=== PATIENT | female | born 1940 | race Caucasian/White ===

== ENCOUNTER 2017-04-29 11:00 | Outpatient (RCR) | payer OTHER ==
--- NOTE | 2017-04-09 14:46 | RS.OPPTEV2 ---
Date of Note: 04/08/17 Visit #: 1 Date of Evaluation: 04/08/17 Payer Source: MEDICARE Surgery Performed?: No Treatment Diagnosis: frequent falls, gait instability History of Condition/Mechanism of Injury:: pt has had hx of multiple falls in last few months. pt states she does not get dizzy or black out. She feels like her legs just "fold up" on her. Prior Level of Function.....Patient was independent with: ADL's, Self Care, Ambulation/Mobility Functional Limitations: Reaching, Lifting, Squatting, Ambulation, Community Access/Integration Current Subjective/complaints:: pt states she feels like her legs have just gotten weak. Reports her L shld has been limited since she hurt it while taking care of her . Treatment Side (optional): N/A *Precautions: fall precautions Medical History Medical History: Hypertension, CHF Medical History Comments:: osteoporosis, major depressive disorder, Smoking Status: Never smoker Hx Home Medications: amlodipine, alendronate, atorvastatin, buspirone, calcium, lisinopril, metoprolol succinate XL, sertraline, triamterene-hydrochlorothiazide Patient's Goals: get stronger Functional Outcome Measure Tinetti: 16 (43%) - G Codes & Severity Modifier G Codes & Modifier: mobility current CK. mobility goal CI Source of G Code score: tinetti balance score Observation - Observation Posture: Forward Head, Rounded Shoulders, Increased Thoracic Kyphosis, Decreased Lumbar Lordosis Gait - Gait Pattern General Gait Pattern Observation: Wide Based Gait, Decrease Stride Lngth (R), Decrease Stride Lngth (L), Lateral Trunk Lean Gait Comments: pt amb with increased lat sway, decreased step length and wide SKIP General Range of Motion: L shld flex AAROM 110, abd 80. otherwise WFL's Muscle Strength: RUE: shld flex 3+/5, elbow flex/ext 4-/5, decreased rand sewer strength. LUE: shld flex 3-/5, elbow flex/ext 3+/5, decreased rand sewer strength. BLE hip flex 4-/5, knee flex 4-/5, ext 4/5, ankle DF/PF 4/5 Palpation Palpation Findings: None/Normal Sensation - Sensation Right Upper Extremity: Intact/Normal Left Upper Extremity: Intact/Normal Right Lower Extremity: Intact/Normal Left Lower Extremity: Intact/Normal Balance - Sitting Balance Static Sitting Balance: Good Dynamic Sitting Balance: Good - Standing Balance Static Standing Balance: Fair Dynamic Standing Balance: Poor - Comments Balance Assessment Comments: Tinetti score 16/28, balance master on limits of stability score 9%, 137 secs Interventions - Exercise/Activities/Manual Therapy Exercises/Activities: pt performed SAQ, SLR, LAQ, QS, BLE. UE wand AAROM shld flex x 10, elbow flex/ext Manual Therapy: n/a HOME EXERCISE PROGRAM: pt given written HEP including wand ex, elbow flex/ext, BLE QS, SAQ, SLR, LAQ - Charges Timed Code Treatment Minutes: 58 Total Treatment Time: 64 Procedures billed for this date of service:: eval med EVALUATION COMPLEXITY LEVEL EVALUATION COMPLEXITY LEVEL: HISTORY: Low, EXAM OF BODY SYSTEMS: Low, CLINICAL PRESENTATION: Medium, CLINICAL DECISION MAKING: Low Assessment Assessment: pt presents with decreased strength, balance as well as decreased gait safety. pt is a fall risk. Patient Education: Home Exercise Program, Activity Modification, Education of Plan of Care Rehab Potential: Good Short Term Goals Goal #1: pt amb in dept with no LOB with improved sequencing SBA Goal to be met by: 04/29/17 Goal #2: pt with improved strength BLE 4- to 4/5 Goal to be met by: 04/29/17 Goal #3: pt with improved dyn stand balance as noted by tinetti score Goal to be met by: 04/29/17 Welfare Eligibility Interviewer Goals Goal #1: pt with no reports of fall at home. Goal to be met by: 05/20/17 Goal #2: Improved dyn stand balance as noted by tinetti score Goal to be met by: 05/20/17 Goal #3: pt with improved strength BLE 4 to 4+/5 and independent with HEP Goal to be met by: 05/20/17 Goal #4: pt amb functional household distances with no LOB Goal to be met by: 05/20/17 Plan - Treatment to be Provided Procedures: Therapeutic Exercises, Therapeutic Activity, Gait Training, Patient Education Modalities: No Modalities - Treatment Plan Frequency: 2 X week Duration: 6 weeks ORDER # VISITS AND/OR THROUGH DATE: 05/20/17 - Treatment Code (1) Frequent falls Code(s): R29.6 - REPEATED FALLS (2) Gait instability Code(s): R26.81 - UNSTEADINESS ON FEET (3) Muscle weakness Code(s): M62.81 - MUSCLE WEAKNESS (GENERALIZED)
--- NOTE | 2017-04-11 16:41 | RS.OPPTDN ---
Subjective Date of Note: 04/11/17 Visit #: 2 Date of Evaluation: 04/08/17 Payer Source: MEDICARE Treatment Diagnosis: frequent falls, gait instability Current Subjective/complaints:: Patient says she is eager to improve her strength. She says she has gotten weak since caring for her . She reports performing HEP and has a little soreness in her legs. *Precautions: fall precautions Interventions - Exercise/Activities/Manual Therapy Exercises/Activities: Patient performs supine exercises of: QS, SAQ, LE alternate lift in hooklying, DF with yellow tband, pillow squeezes, isometric hip abd all x 10. SAQ 2x10. 1# wand for bilateral shoulder flexion, chest presses x 10. Sitting: LAQ, toe/heel raises, scapular retraction with yellow tband x 10. Standing at railing: hip abd, heel raises, shoulder shrugs and scap adduction for posture x 10. Education on HEP, safety, and therex performed today. Total minutes of Exercise: 38 Manual Therapy: n/a HOME EXERCISE PROGRAM: pt given written HEP including wand ex, elbow flex/ext, BLE QS, SAQ, SLR, LAQ - Charges Timed Code Treatment Minutes: 38 Total Treatment Time: 38 Procedures billed for this date of service:: ex3 Assessment: Patient able to begin HEP with just slight muscle fatigue/soreness to the quads. Patient performs all therex today well and with only slight fatigue. Patient Education: Education of diagnosis, Home Exercise Program, Home Safety Patient demonstrates compliance with HEP?: Yes Short Term Goals Goal #1: pt amb in dept with no LOB with improved sequencing SBA Goal to be met by: 04/29/17 Goal #2: pt with improved strength BLE 4- to 4/5 Goal to be met by: 04/29/17 Goal #3: pt with improved dyn stand balance as noted by tinetti score Goal to be met by: 04/29/17 Correction Goals Goal #1: pt with no reports of fall at home. Goal to be met by: 05/20/17 Goal #2: Improved dyn stand balance as noted by tinetti score Goal to be met by: 05/20/17 Goal #3: pt with improved strength BLE 4 to 4+/5 and independent with HEP Goal to be met by: 05/20/17 Goal #4: pt amb functional household distances with no LOB Goal to be met by: 05/20/17 Plan PLAN OF CARE EXPIRES ON:: 05/20/17 ORDER # VISITS AND/OR THROUGH DATE: 05/20/17 PLAN: Patient to continue to attend for therex to improve LE/UE strength and bal
--- NOTE | 2017-04-15 14:58 | RS.OPPTDN ---
Subjective Date of Note: 04/15/17 Visit #: 3 Date of Evaluation: 04/08/17 Payer Source: MEDICARE Treatment Diagnosis: frequent falls, gait instability Current Subjective/complaints:: Patient says that she is working on HEP twice a day. She says that she already feels that exercises are helping. *Precautions: fall precautions Interventions - Exercise/Activities/Manual Therapy Exercises/Activities: Patient performs supine exercises of: QS, SAQ added 1# for ea LE, LE alternate lift in hooklying 1# ea LE, DF with yellow tband, pillow squeezes, yellow band for hooklying hip abd all 2 x 10. Supine 1# wand for bilateral shoulder flexion, chest presses x 10. Sitting: Holding ball above her head and lateral lean and at midline x 5. 1# wand for bilateral shoulder flexion with posterior support by REAL ESTATE BRANCH MANAGER, LAQ, toe/heel raises, scapular retraction with yellow tband x 10. Standing at railing: side stepping, heel raises, marching, shoulder shrugs and scap adduction for posture x 10. Education on postural mechanics and safety with gait/transfers. Total minutes of Exercise: 38 Manual Therapy: n/a HOME EXERCISE PROGRAM: pt given written HEP including wand ex, elbow flex/ext, BLE QS, SAQ, SLR, LAQ - Charges Timed Code Treatment Minutes: 38 Total Treatment Time: 38 Procedures billed for this date of service:: ex3 Assessment: Patient already compliant with HEP and feels she is able to see improvement with strength. She does appear weaker on the L LE than R. She needs assistance posteriorally with sitting trunk exercises due to weakness. No LoB with dynamic exercises. Patient Education: Body/Joint mechanics, Home Exercise Program Patient demonstrates compliance with HEP?: Yes Short Term Goals Goal #1: pt amb in dept with no LOB with improved sequencing SBA Goal to be met by: 04/29/17 Progress towards Goal:: Progressing Goal #2: pt with improved strength BLE 4- to 4/5 Goal to be met by: 04/29/17 Goal #3: pt with improved dyn stand balance as noted by tinetti score Goal to be met by: 04/29/17 Hydrologic Modeler Goals Goal #1: pt with no reports of fall at home. Goal to be met by: 05/20/17 Progress towards goal: Progressing Goal #2: Improved dyn stand balance as noted by tinetti score Goal to be met by: 05/20/17 Goal #3: pt with improved strength BLE 4 to 4+/5 and independent with HEP Goal to be met by: 05/20/17 Goal #4: pt amb functional household distances with no LOB Goal to be met by: 05/20/17 Plan PLAN OF CARE EXPIRES ON:: 05/20/17 ORDER # VISITS AND/OR THROUGH DATE: 05/20/17 PLAN: Patient to continue x 8 more sessions for progressing therex.
--- NOTE | 2017-04-18 16:36 | RS.OPPTDN ---
Subjective Date of Note: 04/18/17 Visit #: 4 Date of Evaluation: 04/08/17 Payer Source: MEDICARE Treatment Diagnosis: frequent falls, gait instability Current Subjective/complaints:: Patient c/o increased ache to the knees and shoulders. She says she did extra housework today and feels she shouldn't have done it on a "therapy" day. 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 She says she also performed HEP. States she feels steady, but just sore. *Precautions: fall precautions Pain Assessment - Pain Description Pain Location: sore to the shoulders and knees Interventions - Exercise/Activities/Manual Therapy Exercises/Activities: Patient performs supine exercises of: QS, SAQ added 1# for ea LE, LE alternate lift in hooklying 1# ea LE, DF with red tband, pillow squeezes, red band for hooklying hip abd all 2 x 10. Trunk rotation with ball and red tband, bridging, Supine 1# wand for bilateral shoulder flexion, chest presses x 10. Sitting: Holding ball above her head and lateral lean and at midline x 5. 1# wand for bilateral shoulder flexion with posterior support by ROVING TELLER, sitting: scapular retraction with yellow tband x 10. Standing at railing : hip abd, marching and heel raises on foam x 10. Postural education and perf erect standing and hands on wall for scapular stability. Education on postural mechanics and safety with gait/transfers. Total minutes of Exercise: 45 Manual Therapy: n/a HOME EXERCISE PROGRAM: pt given written HEP including wand ex, elbow flex/ext, BLE QS, SAQ, SLR, LAQ - Charges Timed Code Treatment Minutes: 45 Total Treatment Time: 45 Procedures billed for this date of service:: ex3 Assessment: Patient with increased soreness to the bilateral shoulders and bilateral knees. She is able to perform most therex, but she had difficulty tolerating shoulder ROM bilaterally using wand and holds head down during standing therex and amb due to fatigue and soreness. Discussed resting intermittently with housework chores. Patient Education: Education of diagnosis, Home Exercise Program, Activity Modification Patient demonstrates compliance with HEP?: Yes Short Term Goals Goal #1: pt amb in dept with no LOB with improved sequencing SBA Goal to be met by: 04/29/17 Progress towards Goal:: Progressing Goal #2: pt with improved strength BLE 4- to 4/5 Goal to be met by: 04/29/17 Goal #3: pt with improved dyn stand balance as noted by tinetti score Goal to be met by: 04/29/17 Client Support Manager Goals Goal #1: pt with no reports of fall at home. Goal to be met by: 05/20/17 Progress towards goal: Progressing Goal #2: Improved dyn stand balance as noted by tinetti score Goal to be met by: 05/20/17 Goal #3: pt with improved strength BLE 4 to 4+/5 and independent with HEP Goal to be met by: 05/20/17 Goal #4: pt amb functional household distances with no LOB Goal to be met by: 05/20/17 Plan PLAN OF CARE EXPIRES ON:: 05/20/17 ORDER # VISITS AND/OR THROUGH DATE: 05/20/17 PLAN: Patient to continue for therex BIW to build strength and bal
--- NOTE | 2017-04-23 11:08 | RS.OPPTDN ---
Subjective Date of Note: 04/23/17 Visit #: 5 Date of Evaluation: 04/08/17 Payer Source: MEDICARE Treatment Diagnosis: frequent falls, gait instability Current Subjective/complaints:: Patient says she is performing HEP 2-3 times per day. She says she doesn't know if it is helping her legs or walking much, but says she can tell she is gaining strength in her arms and can now put her jacket on easier. Later, she admits she can go up/down steps better too. *Precautions: fall precautions Interventions - Exercise/Activities/Manual Therapy Exercises/Activities: Patient performs supine exercises of: QS, SAQ added 1 1/2 # for ea LE, LE alternate lift in hooklying 1 1/2# ea LE, DF with red tband, pillow squeezes, red band for hooklying hip abd all 2 x 10. Trunk rotation with ball and red tband, bridging, Supine 1# wand for bilateral shoulder flexion , chest presses x 10. Sitting: Holding 1 1/2#ball above her head and lateral lean across midline and leaning down to chart picker ball on step stool and raising upward x 5. 1# wand for bilateral shoulder flexion with posterior support by AUTO JOB ESTIMATOR and red tband for scap retraction x 10, Standing at railing: hip abd, marching with 1 1/2# ea ankle x 10. Cues to look upward to avoid cervical flexion and poor posture while performing standing exercises. Step board for forward steps leading with R, then switching to work the L due to weakness more on this side rather than R. Total minutes of Exercise: 47 Manual Therapy: n/a HOME EXERCISE PROGRAM: pt given written HEP including wand ex, elbow flex/ext, BLE QS, SAQ, SLR, LAQ - Charges Timed Code Treatment Minutes: 47 Total Treatment Time: 47 Procedures billed for this date of service:: ex2, neuro1 Assessment: Patient progressing with being very compliant with HEP, demo improved ease with ADLs such as steps and donning jackets. She is able to progress with increased weights in supine and when WBing for dynamic activities. She continues with partial intermittent posterior lean with bilateral shoulder flexion activities in sitting. Limited UE exercises due to pain in the L shoulder and hx of limited ROM. Patient Education: Education of diagnosis, Body/Joint mechanics, Home Exercise Program, Home Safety Patient demonstrates compliance with HEP?: Yes Short Term Goals Goal #1: pt amb in dept with no LOB with improved sequencing SBA Goal to be met by: 04/29/17 Progress towards Goal:: Progressing Goal #2: pt with improved strength BLE 4- to 4/5 Goal to be met by: 04/29/17 Progress towards Goal:: Progressing Goal #3: pt with improved dyn stand balance as noted by tinetti score Goal to be met by: 04/29/17 Channel Sales Director Goals Goal #1: pt with no reports of fall at home. Goal to be met by: 05/20/17 Progress towards goal: Progressing Goal #2: Improved dyn stand balance as noted by tinetti score Goal to be met by: 05/20/17 Goal #3: pt with improved strength BLE 4 to 4+/5 and independent with HEP Goal to be met by: 05/20/17 Goal #4: pt amb functional household distances with no LOB Goal to be met by: 05/20/17 Plan PLAN OF CARE EXPIRES ON:: 05/20/17 ORDER # VISITS AND/OR THROUGH DATE: 05/20/17 PLAN: Patient to continue BIW x 3 more weeks progressing dynamic activities and bal exercises to build LE/trunk strength and assist with amb.
--- NOTE | 2017-04-25 11:33 | RS.OPPTDN ---
Subjective Date of Note: 04/25/17 Visit #: 6 Date of Evaluation: 04/08/17 Payer Source: MEDICARE Treatment Diagnosis: frequent falls, gait instability Current Subjective/complaints:: Patient reports she is able to get up off of the floor now. She says she had to stoop down to get something and was surprised at how well she was able to pull herself up. She reports performing HEP and is also able to see that her legs are stronger and exercises are becoming easier. *Precautions: fall precautions Pain Assessment - Pain Description Pain Location: pain and swelling voiced only to the R index finger (DIP) due to arthritis Interventions - Exercise/Activities/Manual Therapy Exercises/Activities: Patient performs supine exercises of: QS, SAQ progressed to 2# for ea LE, LE alternate lift in hooklying progressed to 2# ea LE, DF with red tband, pillow squeezes, red band for hooklying hip abd all 2 x 10. Trunk rotation with ball and red tband, bridging, Supine progressed 2# wand for bilateral shoulder flexion, chest presses x 10. Sitting: Holding 1 1/2#ball above her head and lateral lean across midline and leaning down to quill picking machine operator ball on step stool and raising upward x 5 holding for ~3 sec's. 1# wand for bilateral shoulder flexion without requiring posterior support and red tband for scap retraction x 10, Began stationary bike with constant cueing for going forward and then switching to backwards. Assistance with pedals x 3 mins. Total minutes of Exercise: 38 Manual Therapy: n/a HOME EXERCISE PROGRAM: pt given written HEP including wand ex, elbow flex/ext, BLE QS, SAQ, SLR, LAQ - Charges Timed Code Treatment Minutes: 38 Total Treatment Time: 38 Procedures billed for this date of service:: ex3 Assessment: Patient able to progress with weights for LE and UE's without c/o's and improved control. She admits being able to have enough strength UE/LE's to now get up off of the floor in which she has been unable to do so for some time. She is able to demo increased trunk control as she performs sitting exercises without requiring posterior support. She had some difficulty viktoriya stationary bike due to knee pain. Patient Education: Body/Joint mechanics, Home Exercise Program Patient demonstrates compliance with HEP?: Yes Short Term Goals Goal #1: pt amb in dept with no LOB with improved sequencing SBA Goal to be met by: 04/29/17 Progress towards Goal:: Progressing Goal #2: pt with improved strength BLE 4- to 4/5 Goal to be met by: 04/29/17 Progress towards Goal:: Progressing Goal #3: pt with improved dyn stand balance as noted by tinetti score Goal to be met by: 04/29/17 Progress towards Goal:: Progressing [facility] Goals Goal #1: pt with no reports of fall at home. Goal to be met by: 05/20/17 Progress towards goal: Progressing Goal #2: Improved dyn stand balance as noted by tinetti score Goal to be met by: 05/20/17 Goal #3: pt with improved strength BLE 4 to 4+/5 and independent with HEP Goal to be met by: 05/20/17 Goal #4: pt amb functional household distances with no LOB Goal to be met by: 05/20/17 Plan PLAN OF CARE EXPIRES ON:: 05/20/17 ORDER # VISITS AND/OR THROUGH DATE: 05/20/17 PLAN: Patient to continue for advancing dynamic activities and trunk strengthening to assist with her gt
--- NOTE | 2017-04-29 14:31 | RS.OPPTDN ---
Subjective Date of Note: 04/29/17 Visit #: 7 Date of Evaluation: 04/08/17 Payer Source: MEDICARE Treatment Diagnosis: frequent falls, gait instability Current Subjective/complaints:: Patient says she continues to perform all HEP, but did not this morning so that she would not get too tired from PT session. She says she is able to tell she has more strength in her legs and that she is walking "better." She says she has a little trouble with going up/down stairs. *Precautions: fall precautions Interventions - Exercise/Activities/Manual Therapy Exercises/Activities: Patient performs supine exercises of: QS, SAQ progressed to 2# for ea LE, LE alternate lift in hooklying progressed to 2# ea LE, DF with red tband, pillow squeezes, red band for hooklying hip abd all 2 x 10. Trunk rotation with ball and red tband, bridging, Supine progressed 2# wand for bilateral shoulder flexion, chest presses x 10. 1# wand for bilateral shoulder flexion without requiring posterior support and red tband for scap retraction x 10, Avoided stationary bike today as patient recalls it bothering her knees greatly after last session. At railing: forward step ups on board leading with the L then R. Side step ups on board leading with the R, then L. Foam for heel raises x 10. Total minutes of Exercise: 35 Manual Therapy: n/a HOME EXERCISE PROGRAM: pt given written HEP including wand ex, elbow flex/ext, BLE QS, SAQ, SLR, LAQ - Charges Timed Code Treatment Minutes: 35 Total Treatment Time: 35 Procedures billed for this date of service:: ex2 Assessment: Patient experienced increased knee pain following stationary bike last session so we did avoid it today. Also, c/o L shoulder pain and limited range with some postural exercises and with reaching at home. She is able to progress all other LE and trunk exercises without c/o'. She is very compliant with HEP at this time. Good bal and only mild fatigue with step board exercises. Vc's for sequencing of stairs for community instances and instruction as in activity performed in the department. Patient Education: Body/Joint mechanics, Home Exercise Program, Home Safety Patient demonstrates compliance with HEP?: Yes Short Term Goals Goal #1: pt amb in dept with no LOB with improved sequencing SBA Goal to be met by: 04/29/17 Progress towards Goal:: Met Goal #2: pt with improved strength BLE 4- to 4/5 Goal to be met by: 04/29/17 Progress towards Goal:: Met Goal #3: pt with improved dyn stand balance as noted by tinetti score Goal to be met by: 04/29/17 Progress towards Goal:: Progressing Attorney Lawyer Goals Goal #1: pt with no reports of fall at home. Goal to be met by: 05/20/17 Progress towards goal: Progressing Goal #2: Improved dyn stand balance as noted by tinetti score Goal to be met by: 05/20/17 Goal #3: pt with improved strength BLE 4 to 4+/5 and independent with HEP Goal to be met by: 05/20/17 Goal #4: pt amb functional household distances with no LOB Goal to be met by: 05/20/17 Plan PLAN OF CARE EXPIRES ON:: 05/20/17 ORDER # VISITS AND/OR THROUGH DATE: 05/20/17 PLAN: Continue with strengthening and bal exercises BIW
== END 2017-04-30 ==
PROVIDERS: ATTEND Internal Medicine
DX: R29.6 Repeated falls (principal); R26.81 Unsteadiness on feet

== ENCOUNTER 2017-05-19 15:00 | Outpatient (RCR) ==
--- NOTE | 2017-05-05 09:03 | RS.OPPTDN ---
Subjective Date of Note: 05/01/17 Visit #: 8 Date of Evaluation: 04/08/17 Payer Source: MEDICARE Treatment Diagnosis: frequent falls, gait instability Current Subjective/complaints:: Patient says she is gaining strength. She says she feels she is better balanced and continues to work on HEP BID. *Precautions: fall precautions Interventions - Exercise/Activities/Manual Therapy Exercises/Activities: Patient performs supine exercises of: QS, SAQ progressed to 2# for ea LE, LE alternate lift in hooklying progressed to 2# ea LE, DF with red tband, pillow squeezes, red band for hooklying hip abd all 2 x 10. Trunk rotation with ball and red tband, bridging, Supine progressed 2# wand for bilateral shoulder flexion, chest presses x 10. 1# wand for bilateral shoulder flexion without requiring posterior support and red tband for scap retraction x 10, At railing: forward step ups on board leading with the L then R. Side step ups on board leading with the R, then L. Foam for heel raises x 10. Total minutes of Exercise: 38 Manual Therapy: n/a HOME EXERCISE PROGRAM: pt given written HEP including wand ex, elbow flex/ext, BLE QS, SAQ, SLR, LAQ - Charges Timed Code Treatment Minutes: 38 Total Treatment Time: 38 Procedures billed for this date of service:: ex3 Assessment: Patient continues to progress with all trunk exercises, maintaining improved erect bal with sitting exercises. She is able to perform step ups with less knee pain. Patient Education: Body/Joint mechanics, Home Exercise Program, Education of Plan of Care Patient demonstrates compliance with HEP?: Yes Short Term Goals Goal #1: pt amb in dept with no LOB with improved sequencing SBA Goal to be met by: 04/29/17 Progress towards Goal:: Met Goal #2: pt with improved strength BLE 4- to 4/5 Goal to be met by: 04/29/17 Progress towards Goal:: Met Goal #3: pt with improved dyn stand balance as noted by tinetti score Goal to be met by: 04/29/17 Progress towards Goal:: Progressing Detention Goals Goal #1: pt with no reports of fall at home. Goal to be met by: 05/20/17 Progress towards goal: Progressing Goal #2: Improved dyn stand balance as noted by tinetti score Goal to be met by: 05/20/17 Goal #3: pt with improved strength BLE 4 to 4+/5 and independent with HEP Goal to be met by: 05/20/17 Goal #4: pt amb functional household distances with no LOB Goal to be met by: 05/20/17 Plan PLAN OF CARE EXPIRES ON:: 05/20/17 ORDER # VISITS AND/OR THROUGH DATE: 05/20/17 PLAN: Patient to continue BIW x 2 more weeks. Check on POC to be signed by to continue above visits.
--- NOTE | 2017-05-07 09:52 | RS.CXNS ---
Date of scheduled appointment: 05/07/17 Type: Cancel Reason for Cancel/NS: No POC signed and returned at this date.
--- NOTE | 2017-05-13 15:36 | RS.OPPTDN ---
Subjective Date of Note: 05/13/17 Visit #: 9 Date of Evaluation: 04/08/17 Payer Source: MEDICARE Treatment Diagnosis: frequent falls, gait instability Current Subjective/complaints:: Patient says she has been working on HEP often at home. She says she can tell her bal is better and that going down steps at [employer] is easier. However, she does say she is stiff today due to colder weather. C/o limited shoulder ROM, particularly the L UE. *Precautions: fall precautions Interventions - Exercise/Activities/Manual Therapy Exercises/Activities: Ellen begins with passive bilateral stretching for SKTC, Hamstring, lower trunk rotation, and heel cords due to c/o's and demo of inflexibility x 3ea. Patient performs supine exercises of: QS, SAQ progressed to 2# for ea LE, LE alternate lift in hooklying progressed to 2# ea LE, DF with red tband, pillow squeezes, red band for hooklying hip abd all 2 x 10. Trunk rotation with ball and red tband, bridging, Alternate ball lift with LE lift for diagonal ab crunches x 10. Supine progressed 2# wand for bilateral shoulder flexion, chest presses x 10. 1# wand for bilateral shoulder flexion without requiring posterior support and red tband for scap retraction x 10, At railing: forward step ups on Balance Sewing Machine Operator Semiautomatic foam pad leading with the L then R. Foam also for heel raises and marching x10. Guillen air pad for weight shifting L to R and A/P x 10 all standing exercises using only 1 hand rail assistance and prompting for improve erect posture. Pulleys for shoulder x 3 mins for flexion and abd. Total minutes of Exercise: 48 Manual Therapy: n/a HOME EXERCISE PROGRAM: pt given written HEP including wand ex, elbow flex/ext, BLE QS, SAQ, SLR, LAQ - Charges Timed Code Treatment Minutes: 48 Total Treatment Time: 48 Procedures billed for this date of service:: ex3 Assessment: Ellen has had a short break from therapy last week due to POC not being signed, but since has been signed and returned and now we are able to resume treatment. Patient very consistent with HeP at this time and able to verbalize improved ability to descend stairs at [employer]. She demo tight bilateral HS, which may be also affecting gait/bal. She is able to perform more challenging exercises with only one hand held assistance on railing. Patient Education: Body/Joint mechanics, Home Exercise Program, Education of Plan of Care Short Term Goals Goal #1: pt amb in dept with no LOB with improved sequencing SBA Goal to be met by: 04/29/17 Progress towards Goal:: Met Goal #2: pt with improved strength BLE 4- to 4/5 Goal to be met by: 04/29/17 Progress towards Goal:: Met Goal #3: pt with improved dyn stand balance as noted by tinetti score Goal to be met by: 04/29/17 Progress towards Goal:: Progressing Senior Care Goals Goal #1: pt with no reports of fall at home. Goal to be met by: 05/20/17 Progress towards goal: Progressing Goal #2: Improved dyn stand balance as noted by tinetti score Goal to be met by: 05/20/17 Goal #3: pt with improved strength BLE 4 to 4+/5 and independent with HEP Goal to be met by: 05/20/17 Goal #4: pt amb functional household distances with no LOB Goal to be met by: 05/20/17 Plan PLAN OF CARE EXPIRES ON:: 05/20/17 ORDER # VISITS AND/OR THROUGH DATE: 05/20/17 PLAN: Patient to continue x 3 more visits by 05/20/17 to focus on bal, stretching , and gait exercises.
--- NOTE | 2017-05-16 16:17 | RS.OPPTDN ---
Subjective Date of Note: 05/16/17 Date of Evaluation: 04/08/17 Payer Source: MEDICARE Treatment Diagnosis: frequent falls, gait instability Current Subjective/complaints:: Patient c/o R forearm pain. She says she does not know if she slept on her arm, but she does not believe it is from exercises. Patient says she is trying to be more conscientious about her gait and taking more cautious steps. *Precautions: fall precautions Interventions - Exercise/Activities/Manual Therapy Exercises/Activities: Ellen begins with passive bilateral stretching for SKTC, Hamstring, lower trunk rotation, and heel cords x 3ea. Patient performs supine exercises of: QS, SAQ progressed to 2 1/2# for ea LE, LE alternate lift in hooklying progressed to 2 1/2# ea LE, DF with green tband, pillow squeezes, progressed to green band for hooklying hip abd all 2 x 10. Trunk rotation with ball and tband, bridging, Alternate ball lift with LE lift for diagnal ab crunches x 10. Supine progressed 2# wand for bilateral chest presses x 10 omitted shoulder flexion due to patient's c/o pain. 1# wand for bilateral shoulder flexion without requiring posterior support and red tband for scap retraction x 10, Pulleys for shoulder x 3 mins for flexion and abd. Finished with stationary bike x 3 mins for/retro. Instructed in proper sequencing with gait and heel strike for longer stride. Total minutes of Exercise: 38 Manual Therapy: n/a HOME EXERCISE PROGRAM: pt given written HEP including wand ex, elbow flex/ext, BLE QS, SAQ, SLR, LAQ - Charges Timed Code Treatment Minutes: 38 Total Treatment Time: 38 Procedures billed for this date of service:: ex3 Assessment: Patient has demo improvement with Tinetti test from to , now presenting at 29% impairment. Patient Education: Body/Joint mechanics, Education of Plan of Care Patient demonstrates compliance with HEP?: Yes Short Term Goals Goal #1: pt amb in dept with no LOB with improved sequencing SBA Goal to be met by: 04/29/17 Progress towards Goal:: Met Goal #2: pt with improved strength BLE 4- to 4/5 Goal to be met by: 04/29/17 Progress towards Goal:: Met Goal #3: pt with improved dyn stand balance as noted by tinetti score Goal to be met by: 04/29/17 Progress towards Goal:: Met [facility] Goals Goal #1: pt with no reports of fall at home. Goal to be met by: 05/20/17 Progress towards goal: Progressing Comments: as of current, no falls Goal #2: Improved dyn stand balance as noted by tinetti score Goal to be met by: 05/20/17 Progress towards goal: Met Goal #3: pt with improved strength BLE 4 to 4+/5 and independent with HEP Goal to be met by: 05/20/17 Progress towards goal: Progressing Goal #4: pt amb functional household distances with no LOB Goal to be met by: 05/20/17 Progress towards goal: Progressing Plan PLAN OF CARE EXPIRES ON:: 05/20/17 ORDER # VISITS AND/OR THROUGH DATE: 05/20/17 PLAN: Patient has 1 remaining session next week per order
--- NOTE | 2017-05-19 16:44 | RS.OPPTDN ---
Subjective Date of Note: 05/19/17 Visit #: 11 Date of Evaluation: 04/08/17 Payer Source: MEDICARE Treatment Diagnosis: frequent falls, gait instability Current Subjective/complaints:: Patient says she is very tired. Reports soreness to her legs from running errands and getting groceries today. She says she has to work at the [email or web address] tomorrow and is dreading it due to how long she will be there. She says she will be making an effort to get up and walk around and "work her legs" while she is seated. Reports her bal is better and she has not fallen since beginning therapy. Reports performing HEP BID. *Precautions: fall precautions Pain Assessment - Pain Description Pain Location: sore and fatigued Balance System Training - Level 1 Postural Stability/Symmetry #1 Training Mode: Weight Shift Training Vision: Eyes Open Task: None Stance: Normal Time: 1.5 -2.5 mins Reps: 3 - Level 2 Dynamic Weight Shifting #1 Training Mode: Limits of Stability Skill Level (1-3): 1 Platform Stability Level (1-12): static Time: 30 sec's to 1.5 mins Reps: 4 Interventions - Exercise/Activities/Manual Therapy Exercises/Activities: Ellen begins with Balance Typing Pool Supervisor for reassessment for LOS and Weight Shift (L to R) see tab. Patient performs scapular stretch against wall at railing x 3. Weight shifting L to R and A/P at railing with CGA to SBA multiple reps. Heel raises, minisquats x 10. Tinetti's reassessment for nudging eyes open/shut, 360 degrees steps, and assessing stand to sit/sit to stand. Supine for passive SKTC, Hamstring, lower trunk rotation, and heel cords x 3ea. Patient performs supine exercises of: SAQ progressed to 2 1/2# for ea LE, DF and hookling hip abd with green tband, ball squeezes, bridging, Encouraged heel strike for proper amb and postural exercises/ awareness. Total minutes of Exercise: 36 Manual Therapy: n/a HOME EXERCISE PROGRAM: pt given written HEP including wand ex, elbow flex/ext, BLE QS, SAQ, SLR, LAQ - Objective Findings Observations,measurements,etc.: LOS reassessment from 9% at eval to 25% today multiple reps and with cueing to properly shift weight to achieve targets. - Charges Timed Code Treatment Minutes: 36 Total Treatment Time: 36 Procedures billed for this date of service:: neuro1, ex1 Assessment: Patient has demo improvement with Tinettis score and Limits of Stability on Balance [place]. She is very compliant with HEP at this time and HS length is WNL given age appropriateness. 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 Patient Education: Body/Joint mechanics, Home Exercise Program, Home Safety, Education of Plan of Care Patient demonstrates compliance with HEP?: Yes Short Term Goals Goal #1: pt amb in dept with no LOB with improved sequencing SBA Goal to be met by: 04/29/17 Progress towards Goal:: Met Goal #2: pt with improved strength BLE 4- to 4/5 Goal to be met by: 04/29/17 Progress towards Goal:: Met Goal #3: pt with improved dyn stand balance as noted by tinetti score Goal to be met by: 04/29/17 Progress towards Goal:: Met Access Control Officer Goals Goal #1: pt with no reports of fall at home. Goal to be met by: 05/20/17 Progress towards goal: Met Goal #2: Improved dyn stand balance as noted by tinetti score Goal to be met by: 05/20/17 Progress towards goal: Met Goal #3: pt with improved strength BLE 4 to 4+/5 and independent with HEP Goal to be met by: 05/20/17 Progress towards goal: Met Goal #4: pt amb functional household distances with no LOB Goal to be met by: 05/20/17 Progress towards goal: Met Plan PLAN OF CARE EXPIRES ON:: 05/20/17 ORDER # VISITS AND/OR THROUGH DATE: 05/20/17 PLAN: Plan for discharge as goals have been met and patient is compliant with HEP
== END 2017-05-31 ==
PROVIDERS: ATTEND Internal Medicine
DX: R29.6 Repeated falls (principal); R26.81 Unsteadiness on feet

== ENCOUNTER 2017-07-24 12:26 | Outpatient (CLI) | END 2017-07-24 12:48 | disposition short-term general hospital (02) | LOC: AMBL 12:26 | PROVIDERS: ATTEND Emergency Medicine | DX: R41.0 Disorientation, unspecified (principal); R29.6 Repeated falls; R26.2 Difficulty in walking, not elsewhere classified; R40.2411 Glasgow coma scale score 13-15, in the field [EMT or ambulance]; R11.10 Vomiting, unspecified; R53.1 Weakness; R00.0 Tachycardia, unspecified; R10.9 Unspecified abdominal pain ==

== ENCOUNTER 2017-07-24 12:26 | Outpatient (CLI) | payer OTHER | END 2017-07-25 12:48 | disposition short-term general hospital (02) | LOC: AMBL 12:26 | PROVIDERS: ATTEND Emergency Medicine | DX: R41.0 Disorientation, unspecified (principal); R29.6 Repeated falls; R26.2 Difficulty in walking, not elsewhere classified; R40.2411 Glasgow coma scale score 13-15, in the field [EMT or ambulance]; R11.10 Vomiting, unspecified; R53.1 Weakness; R00.0 Tachycardia, unspecified; R10.9 Unspecified abdominal pain ==

== ENCOUNTER 2017-08-07 11:02 | Inpatient (IN) ==
--- NOTE | 2017-08-07 20:56 | DI ---
Exam: Single view of the chest. Comparison: None available. Reason for exam: Tachycardia in a patient FINDINGS: No pneumothorax. The cardiac silhouette is prominent in size. No focal consolidation or pleural effusion. Degenerative disease is seen in both shoulders. Impression: Cardiomegaly without evidence of focal consolidation or pleural effusion
[2017-08-08] MEDS ORDERED: LASIX TAB PO SCH (06:30)
[2017-08-08] MEDS ORDERED: LANOXIN PO STA (08:28)
[2017-08-08] MEDS ORDERED: METOPROLOL SUCCINATE PO SCH (09:00)
[2017-08-08] MEDS ORDERED: MUCINEX PO SCH ×2 (09:00→21:00)
[2017-08-08] MEDS ORDERED: DABIGATRAN ETEXILATE MESYLATE PO SCH ×2 (09:00→21:00)
[2017-08-08] MEDS ORDERED: FLORASTOR PO SCH ×2 (09:00→21:00)
[2017-08-08] MEDS ORDERED: ZESTRIL PO SCH (09:00)
[2017-08-08] MEDS ORDERED: TOPROL XL PO SCH (09:00)
[2017-08-08] MEDS ORDERED: LISINOPRIL PO SCH (09:00)
[2017-08-08] MEDS ORDERED: PRADAXA PO SCH ×2 (09:00→21:00)
--- NOTE | 2017-08-08 09:44 | PCM.PROG ---
Attending Provider: ATTENDING PROVIDER: Dr. TROY FULLER This patient is seen with Selin Estevez, Nurse Practitioner. DATE OF SERVICE: 08/08/17 SUBJECTIVE: This 76 year old WHITE/ F was hospitalized 08/07/17. The patient is sitting in chair, alert. She had recent admission for swing bed from [facility]. The patient is alert and oriented. She was cardioverted at [facility]. She has been experiencing sinus tachycardia since arrival. She is not short of breath. Vital signs otherwise normal. REVIEW OF SYSTEMS: CONSTITUTIONAL: Generalized weakness. No night sweats. No malaise, lethargy. No fever or chills. HEENT: Eyes: No visual changes. No eye pain. No eye discharge. ENT: No runny nose. No epistaxis. No sinus pain. No odynophagia. No congestion. RESPIRATORY: No cough, no congestion. No hemoptysis. No shortness of breath. CARDIOVASCULAR: Tachycardia. No angina symptoms. No CHF symptoms. No atypical chest pain for CAD. No palpitations. No orthopnea.. GASTROINTESTINAL: No abdominal pain. No nausea or vomiting. No diarrhea or constipation. No hematemesis. No hematochezia. GENITOURINARY: No urgency. No frequency. No dysuria. No hematuria. No obstructive symptoms. No discharge. No pain. No significant abnormal bleeding. MUSCULOSKELETAL: No musculoskeletal pain; no joint swelling. NEUROLOGICAL: Awake, alert, oriented to time, place and person. No headache. No neck pain. No syncope. No seizures. No dizziness. PSYCHIATRIC: Not anxious. No depression. No suicidal thoughts. No homicidal thoughts. SKIN: No rash. No lesions. No wounds. ENDOCRINE: No unexplained weight loss. No weight gain. HEMATOLOGIC/LYMPHATIC: No anemia. No purpura. No petechiae. No prolonged or excessive bleeding. No palpable lymph nodes. PHYSICAL EXAMINATION: GENERAL: The patient is awake, alert and oriented, lying/sitting in bed in no distress. VITAL SIGNS: Temperature 97.4 F, Pulse 143, Respiratory Rate 14, BP 117/79, Pulse Ox 99% HEENT: Head normocephalic, atraumatic. Eyes: Extraocular muscles are intact. Pupils are equal, round and reactive to light and accommodation. Ears: No lesions. Nose appeared normal. Throat: No exudate or erythema. NECK: Supple. No JVD, no carotid bruit. No lymphadenopathy or thyromegaly. LUNGS: Clear to auscultation. Percussion note normal. Chest symmetrical. HEART: Regular rhythm, heart rate is fast. S1, S2, no S3. No murmurs. No cyanosis or clubbing. No ascites. Pulses: Dorsalis pedis and posterior tibial pulses +1 to +2 both sides. ABDOMEN: Soft. Non-tender. Bowel sounds active. No CVA tenderness. No mass felt. EXTREMITIES: No edema. Full range of motion of all extremities, equal. NEUROLOGIC: No focal deficit. Cranial nerves II through XII are grossly intact. No headache, no double vision or headache. SKIN: Not dry. Intact. Turgor-normal. LYMPHATIC: No palpable lymph nodes/no lymphedema. MUSCULOSKELETAL: Normal joints with no swelling. Muscle tone is normal. LAB REVIEW: 08/08/17 04:30 08/08/17 04:30 08/08/17 04:30: Sodium 129 L, Potassium 3.8, Chloride 91 L, Carbon Dioxide 30, Anion Gap 11.8, BUN 8, Creatinine 0.60, Estimated GFR (MDRD) 97.00, BUN/ Creatinine Ratio 13.33, Glucose 93, Calcium 9.0, Total Bilirubin 1.7 H, AST 44 H , ALT 79 H, Alkaline Phosphatase 83, Total Protein 6.2, Albumin 3.4, Globulin 2.8, Albumin/Globulin Ratio 1.21 08/08/17 04:30: WBC 8.56, RBC 3.48 L, Hgb 10.3 L, Hct 31.4 L, MCV 90.2, MCH 29.6 , MCHC 32.8, RDW Coeff of Roya 13.6, Plt Count 254, Immature Gran % (Auto) 0.4, Neut % (Auto) 50.8, Lymph % (Auto) 31.5, [place] % (Auto) 15.5 H, Eos % (Auto) 1.4 , Baso % (Auto) 0.4, Immature Gran # (Auto) 0.0, Neut # (Auto) 4.4, Lymph # ( Auto) 2.7, [place]ites[place] # (Auto) 1.3, Eos # (Auto) 0.1, Baso # (Auto) 0.0 08/07/17 20:52: Sodium 127 L, Potassium 3.7, Chloride 92 L, Carbon Dioxide 30, Anion Gap 8.7, BUN 8, Creatinine 0.60, Estimated GFR (MDRD) 97.00, BUN/ Creatinine Ratio 13.33, Glucose 102, Calcium 9.2, Total Bilirubin 1.8 H, AST 49 H, ALT 85 H, Alkaline Phosphatase 90, Total Protein 6.5, Albumin 3.6, Globulin 2.9, Albumin/Globulin Ratio 1.24 08/07/17 20:52: WBC 11.06 H, RBC 3.51 L, Hgb 10.7 L, Hct 31.2 L, MCV 88.9, MCH 30.5, MCHC 34.3, RDW Coeff of Roya 13.8, Plt Count 267, Immature Gran % (Auto) 0.3, Neut % (Auto) 61.8, Lymph % (Auto) 21.6, [place] % (Auto) 15.5 H, Eos % (Auto ) 0.6, Baso % (Auto) 0.2, Immature Gran # (Auto) 0.0, Neut # (Auto) 6.8, Lymph # (Auto) 2.4, Whites[place] # (Auto) 1.7, Eos # (Auto) 0.1, Baso # (Auto) 0.0 08/07/17 20:26: Puncture Site Rb, O2 Saturation 96.0, ABG pH 7.463 H, ABG pCO2 41.2, ABG pO2 80.0 L, ABG HCO3 29.5 H, ABG Total CO2 31 H, ABG Base Excess 6 H, Rubens Test +, FiO2 % 21.0 ASSESSMENT: 1. Atrial flutter 2. Generalized weakness 3. Recent UTI 4. Recent cardioversion 5. Dyslipidemia 6. Hypertension PLAN: 1. Digoxin 0.25 mg p.o. one time dose 2. Discontinue Amlodipine Plan and coordination of the patient's care discussed in the presence of Steamer Operator and nurse. CONDITION: Stable SCRIBED BY: ROSITA PHILIPPE Manager Home [facility] scribed while in presence of service performed by Dr. Fuller/Selin Estevez APRN on 08/08/17 ([id number])
[2017-08-08] MEDS ORDERED: NON-FORMULARY MEDICATION (Buspirone Hcl [Buspirone Hcl] 7.5 MG) PO PRN (13:05)
[2017-08-08] MEDS ORDERED: BUSPAR PO PRN (13:18)
[2017-08-08 13:19] VITALS: BMI 26.6
[2017-08-08] MEDS ORDERED: LANOXIN IVP STA (13:29)
[2017-08-08 14:49] VITALS: BP 123/67; TEMP 97.6
--- NOTE | 2017-08-08 15:22 | US ---
Exam: Guerra-scale and color ultrasonographic evaluation of the right and left lower extremity venous structures. Comparison: None available. Reason for exam: Swelling and redness. FINDINGS: There is spontaneous flow with compression and augmentation in the right and left common f emoral, greater saphenous, profunda, superficial femoral, popliteal, peroneal, posterior tibial, and anterior tibial veins. Impression: No ultrasonographic evidence of thrombus is seen in the right or left lower extremity venous structur es.
--- NOTE | 2017-08-08 17:27 | HP ---
DATE OF SERVICE: 08/08/17 (DATE OF ADMISSION 08/07/17) HISTORY OF PRESENT ILLNESS: 76-year-old white female whose primary care provider is Dr. Fortune in [place]. She was recently hospitalized at [facility] in [place] for urosepsis, positive for E. coli. She also experienced atrial flutter, was cardioverted on by Dr. Steve, was placed on Pradaxa. She has had loss of function and worsening weakness with that hospitalization and has been brought here for swing bed admission for physical and occupational therapy. PAST MEDICAL HISTORY: Urosepsis with E. coli Atrial flutter with RVR status post cardioversion 07/29/17 on Pradaxa Possible bilateral lower lobe pneumonia CHF Pulmonary edema History of hyponatremia Hypertension Hyperglycemia with most recent A1C 5.3 on 07/09/17 History of falls Acute on chronic diastolic CHF Dyslipidemia Hypertension Normocytic anemia with iron deficiency Nocturnal hypoxemia Osteoporosis History of ITP History of hypokalemia PAST SURGICAL HISTORY: Tonsillectomy REVIEW OF SYSTEMS: CONSTITUTIONAL: Positive for weakness. No night sweats. No malaise, lethargy. No fever or chills. HEENT: Eyes: No visual changes. No eye pain. No eye discharge. ENT: No runny nose. No epistaxis. No sinus pain. No sore throat. No odynophagia. No ear pain. No congestion. RESPIRATORY: No cough, no congestion. No hemoptysis. No shortness of breath. CARDIOVASCULAR: Positive for tachycardia. No angina symptoms. No CHF symptoms. No atypical chest pain for CAD. No palpitations. No PND. No orthopnea. GASTROINTESTINAL: No abdominal pain. No nausea or vomiting. No diarrhea or constipation. No hematemesis. No hematochezia. GENITOURINARY: No urgency. No frequency. No dysuria. No hematuria. No obstructive symptoms. No discharge. No pain. No significant abnormal bleeding. MUSCULOSKELETAL: No musculoskeletal pain. No joint swelling. No arthritis. NEUROLOGICAL: No headache. No neck pain. No syncope. No seizures. No dizziness. PSYCHIATRIC: Not anxious. No depression. No suicidal thoughts. No homicidal thoughts. SKIN: No rash. No lesions. No wounds. ENDOCRINE: No unexplained weight loss. No weight gain. HEMATOLOGIC/LYMPHATIC: No anemia. No purpura. No petechiae. No prolonged or excessive bleeding. No palpable lymph nodes. PERSONAL/FAMILY/SOCIAL HISTORY: The patient is , lives at home. No alcohol or illicit drug use. Family history positive for coronary artery disease and CVA. MEDICATIONS: (Home) Lasix 20 mg one tab p.o. q.d a.c. Mucinex one tab p.o. b.i.d. Zestril one tab p.o. daily Toprol XL 100 mg one tab p.o. daily Zoloft 1.5 tab p.o. bedtime Pradaxa 150 mg one cap p.o. b.i.d. Florastor 250 mg one cap p.o. b.i.d. Lipitor 40 mg one tab p.o. bedtime Buspirone 7.5 mg p.o. b.i.d. p.r.n. ALLERGIES: PENICILLINS PHYSICAL EXAMINATION: VITAL SIGNS: Temperature 97.4, heart rate 143, respirations 14, BP 117/79, pulse ox 99% on room air. HEENT: Head normocephalic, atraumatic. Eyes: Extraocular muscles are intact. Pupils are equal, round and reactive to light and accommodation. Ears: No lesions. Nose appeared normal. Throat: No exudate or erythema. NECK: Supple. No JVD, no carotid bruit. No lymphadenopathy or thyromegaly. LUNGS: Clear to auscultation with diminished breath sounds bilaterally. Percussion note normal. Chest symmetrical. HEART: The patient is atrial fib, fast rate by auscultation. S1, S2, no S3. No murmurs. No cyanosis or clubbing. No ascites. Pulses: Dorsalis pedis and posterior tibial pulses +1 to +2 bilaterally. ABDOMEN: Soft. Nontender. Bowel sounds active. No CVA tenderness. No mass felt. EXTREMITIES: Trace bilateral leg edema. Full range of motion of all extremities, equal. NEUROLOGIC: No focal deficit. Cranial nerves II through XII are grossly intact. No headache, no double vision or headache. SKIN: Not dry. Intact. Turgor - normal. LYMPHATIC: No palpable lymph nodes/no lymphedema. MUSCULOSKELETAL: Normal joints with no swelling. Muscle tone is normal. LABS: White count 11.06, hemoglobin 10.7, hematocrit 31.2, platelets 267. ABGs on room air pH 7.463, pc02 41.2, p02 80, base excess of 6, bicarb 29.5, TC02 31, 02 sat 96. Sodium 127, BUN 8, creatinine 0.6, glucose 102, total bili 1.8, AST 49, ALT 85. Chest x-ray revealed cardiomegaly with no evidence of focal consolidation or pleural effusion. Previous echo showed that she had mild concentric hypertrophy, LA cavity is dilated, right ventricular borderline elevated. LV function systolically normal. ASSESSMENT: 1. ATRIAL FLUTTER 2. RECENT UROSEPSIS POSITIVE FOR E. COLI 3. GENERALIZED DECLINE IN FUNCTION 4. LEG WEAKNESS 5. HYPERTENSION 6. CHF 7. CARDIOMEGALY 8. RECENT ATRIAL FLUTTER WITH STATUS POST CARDIOVERSION 9. DYSLIPIDEMIA 10. HYPERGLYCEMIA 11. IRON DEFICIENCY ANEMIA 12. NOCTURNAL HYPOXEMIA PLAN: 1. We will admit her to Acute Care vs Swing Bed to the acuity of her uncontrolled heart rate. 2. Routine telemetry orders. 3. CBC, CMP daily. 4. She needs to start an IV. 5. Regular diet. 6. The patient is to be put in the unit. 7. She is to continue all of her medications especially Pradaxa. 8. Will do a repeat UA. 9. Chest x-ray was normal. 10. Venous scan of lower extremities. 11. Will follow closely. TIME SPENT: More than 70 minutes. JOSE
[2017-08-08] MEDS ORDERED: LIPITOR PO SCH ×2 (21:00)
[2017-08-08] MEDS ORDERED: ATORVASTATIN CALCIUM PO SCH ×2 (21:00)
[2017-08-08] MEDS ORDERED: ZOLOFT PO SCH ×2 (21:00)
[2017-08-08] MEDS ORDERED: NORVASC PO SCH (21:00)
[2017-08-09] MEDS ORDERED: LASIX TAB PO SCH (06:30)
[2017-08-09] MEDS ORDERED: LISINOPRIL PO SCH (09:00)
[2017-08-09] MEDS ORDERED: METOPROLOL SUCCINATE PO SCH (09:00)
[2017-08-09] MEDS ORDERED: ZESTRIL PO SCH (09:00)
[2017-08-09] MEDS ORDERED: TOPROL XL PO SCH (09:00)
--- NOTE | 2017-08-11 11:48 | PN ---
DATE OF SERVICE: 08/08/17 ADMITTING NOTE SUBJECTIVE: Sammi was hospitalized for swing bed on 08/07/17 in the evening. Her heart rate noted to be high. The patient has atrial flutter with 1:2 with rate of 140 per minute. She was recently cardioverted by Dr. Steve at [facility] nearly a week ago, she was hospitalized there with e-coli infection and also had respiratory failure which she was on BIPAP. She was cardioverted and then she has been on Pradaxa after that. She also has history of hypertension, dyslipidemia forgetfulness with dementia. She was on Levofloxacin on discharge. The patient' s overall condition seems to have improved. She was able to walk to the special care with me with the help of walker. I did carotid massage with no response. She is 140 per minute with atrial flutter as mention before. The patient has been given Lanoxin 0.25mg. Metoprolol hasn't been given. So far we will be giving Metoprolol according to her heart rate. She is at present time asymptomatic. The patient is going to be admitted regular instead of being in swing bed. Talked to medical case worker and agreeable. CONDITION: Stable. TIME SPENT: More than 30 minutes. Plan and coordination of the patient's care discussed in the presence of nurse. JOSE
--- NOTE | 2017-08-11 13:48 | PN ---
08/07/17: Level 5 08/08/17: D as in discharge MTDD
--- NOTE | 2017-08-11 13:48 | DS ---
DATE OF SERVICE: 08/08/17 FINAL DIAGNOSIS: 1. Atrial flutter with 1:2, CHADS VASC score 2, the patient is on Pradaxa 2. Recent history of patient being treated for e-coli urination sepsis 3. Hyponatremia 4. Hypertension 5. Dyslipidemia 6. History of diastolic congestive heart failure 7. Normal acidic anemia 8. Chronic history of hypoxic hypercarbia 9. Respiratory failure 10.Nocturnal hypoxemia 11.Osteoporosis 12.Osteoarthritis DISCHARGE INSTRUCTIONS: Transfer to [facility]. MEDICATIONS RECEIVED WHILE AT [facility]: 5mg IV Lanoxin Continued on Metoprolol 100mg Lisinopril Pradaxa Buspirone Mucinex Florastor Zoloft Lipitor Lasix DIET INSTRUCTIONS: As tolerated ACTIVITY: As tolerated SMOKING: Never smoker DISEASE SPECIFIC EDUCATION: Transfer HOSPITAL COURSE: Ms. Hughes was hospitalized initially on 08/07/17 for swing bed for physical therapy. The patient on routine workup was noted to have atrial flutter. The patient's atrial flutter continued for 24 hours. The patient has been given 0.5 of Lanoxin, Metoprolol 100mg. The patient is not in distress and she is up and about. Her oxygen saturation on room air is 99%. Blood pressure systolic is 130. Carotid massage had no response. Before giving her Cardizem and some more Lanoxin it was decided to transfer this patient to [facility] where she has Dr. Steve and Dr. Mcdonald as hotel night auditor and she had cardioversion on 07/29/17. Talked Tedfphjr-rx-yga Sophie who is an RN and the patient and they are all agreeable. [facility] hospitalist service was called and they accepted the transfer. The patient's condition at the time of transfer is stable. TIME SPENT: More than 60 minutes. JOSE
== END 2017-08-08 17:44 | disposition short-term general hospital (02) | DRG 308 ==
LOC: UNDOADMIN 11:02 → SCU 11:02 → UNDOADMIN 08-08 11:53 → SCU 08-08 11:53
PROVIDERS: ADMIT Internal Medicine; ATTEND Internal Medicine
DX: I48.4 Atypical atrial flutter (principal); J96.91 Respiratory failure, unspecified with hypoxia; J96.92 Respiratory failure, unspecified with hypercapnia; E87.1 Hypo-osmolality and hyponatremia; I50.32 Chronic diastolic (congestive) heart failure; I10 Essential (primary) hypertension; R53.1 Weakness; E78.5 Hyperlipidemia, unspecified; D64.9 Anemia, unspecified; R06.89 Other abnormalities of breathing; G47.36 Sleep related hypoventilation in conditions classified elsewhere; M81.0 Age-related osteoporosis without current pathological fracture; M19.90 Unspecified osteoarthritis, unspecified site; Z79.01 Long term (current) use of anticoagulants; Z87.440 Personal history of urinary (tract) infections; Z98.890 Other specified postprocedural states; Z79.899 Other long term (current) drug therapy
CPT/HCPCS: 36415; 80053; 82803; 84436; 84443; 85025; 87081; 93005; 93010

== ENCOUNTER 2017-08-08 17:20 | Outpatient (CLI) ==
[2017-08-08 13:19] VITALS: BMI 26.6
== END 2017-08-08 17:43 | disposition short-term general hospital (02) ==
LOC: AMBL 17:20
PROVIDERS: ATTEND Internal Medicine
DX: I48.91 Unspecified atrial fibrillation (principal); I49.3 Ventricular premature depolarization

== ENCOUNTER 2017-08-13 10:23 | Inpatient (IN) | payer OTHER ==
[2017-08-13] MEDS ORDERED: NON-FORMULARY MEDICATION (Buspirone Hcl [Buspirone Hcl] 7.5 MG) PO PRN (12:31)
[2017-08-13 13:23] VITALS: BMI 25.4
[2017-08-13] MEDS ORDERED: BUSPAR PO PRN (13:24)
--- NOTE | 2017-08-13 15:02 | RS.PTINEVL ---
Subjective - Patient information Date of Evaluation: 08/13/17 Date of Arrival on Unit: 08/13/17 Admitted From:: Facility Transfer (transferred from [facility]) Diagnosis: AFib with RVR, prolonged hosp stay Usual Living Arrangement: Alone Living Arrangement Comments: lives alone, son and [id number]-nx-mxd come and checks on pt Home Environment: House, Ramp Medical History: Hypertension, CHF, Arthritis (OA, RA) Medical History Comments:: cardiomegaly, pulmonary edema, anemia, depression, osteoporosis LATEX ALLERGY?: No Surgical History Comments:: cardioversion Medications: see chart Subjective Information/ Patient Comments:: pt states she has decreased endurance s/p hosp stay. pt reports she is feeling better. - Level of function Abilities prior to this admission: prior to initial hosp stay a couple of weeks ago pt was independent with ADL's and amb without AD. Current Level of Function: Partially Dependent Current Equipment Used at Home: has rollator, bsc but was not using at home. Interventions - Objective Patient Orientation: Person, Place, Time, Situation Current Interventions: Telemetry Observation: pt with pitting edema BLE Range of Motion - ROM Right Upper Extremity AROM: Moderate limitation (R shld bruising noted painful with limited flex) Left Upper Extremity AROM: Moderate limitation (L shld limited flex) Right Lower Extremity AROM: WFL's Left Lower Extremity AROM: WFL's Muscle Strength - Muscle Strength Right Upper Extremity Strength: Mild Weakness (shld flex 3-/5, elbow flex/ext 4- /5) Left Upper Extremity Strength: Mild Weakness (shld flex 3-/5, elbow flex/ext 4-/ 5) Right Lower Extremity Strength: Mild Weakness (hip flex 4/5, knee flex/ext 4/5, ankle DF/PF 4+/5) Left Lower Extremity Strength: Mild Weakness (Hip flex 4-/5, knee flex/ext 4-/5 , ankle DF/PF 4/5) Sensation - Sensation Right Upper Extremity Sensation: Intact/Normal Left Upper Extremity Sensation: Intact/Normal Right Lower Extremity Sensation: Intact/Normal Left Lower Extremity Sensation: Intact/Normal Balance - Sitting Balance and Reactions Static Sitting Balance: Good Dynamic Sitting Balance: Good - Standing Balance and Reactions Static Standing Balance: Fair Dynamic Standing Balance: Poor Standing Equilibrium Reactions: Delayed Left, Delayed Right Standing Protective Reactions: Delayed Left, Delayed Right - Comments Balance Assessment Comments: tinetti score: 17/28 Functional Mobility - Bed Mobility Comments:: pt seen sitting up in chair, - Transfers Sit to Stand: CGA Stand to Sit: CGA - Safety Awareness Safety Awareness: Good JB INDEX SCORE: 56 Ambulation - Ambulation Assistive Device Used: Rolling Walker Orthotic/Prosthetic Device: No Distance: 140ft Assistance needed with Ambulation: CGA Gait Deviations: Forward posture, Short stride, Deviates from path Ambulation Comments: pt with increased lat sway, decreased step length. Factors Affecting Ambulation: Decreased Balance, Weakness, Decreased Safety, Limited Endurance Treatment time - Time with patient Total treatment time: 26 Patient Education - Education Patient Education: Activity Modification, Education of Plan of Care Teaching Recipient: Patient Teaching Methods: Discussion (discussion regarding POC and safety with amb) Assessment - Assessment Problem List:: Decreased level of function, Requires training/education, Decreased safety/Risk of falls, Weakness Rehab Potential: Good Further Therapy Indicated?: Yes Candidate for Swing Bed for Therapy Services?: pt is a swing bed patient Evaluation Complexity: HISTORY: Medium (CHF, pulm edema, OA, afib), EXAM OF BODY SYSTEMS: Medium (posture, balance, gait, transfers, ), CLINICAL PRESENTATION: Medium (evolving), CLINICAL DECISION MAKING: Medium Short Term Goals GOAL #1: pt demonstrate independence with rolling and scooting up in bed Goal to be met by: 08/20/17 GOAL #2: pt transfer sup to/from sit to/from stand CGA Goal to be met by: 08/20/17 GOAL #3: pt amb with rwx 150ft with CGA with no LOB and improved posture Goal to be met by: 08/20/17 GOAL #4: Improve dyn stand balance as noted by Tinetti score of 20/28 Goal to be met by: 08/20/17 Senior Care Goals GOAL #1: pt independent transfer sup to/from sit to/from stand SBA to Independent Goal to be met by: 08/23/17 GOAL #2: pt amb functional household distances w/wo AD SBA with no LOB Goal to be met by: 08/23/17 GOAL #3: pt with improved jb index score >65 Goal to be met by: 08/23/17 Plan Plan of Care: Therapeutic EX, Therapeutic Activity Other:: gait training Frequency of Treatment: 1-2 X day, as tolerated Duration of Treatment: 10 days Anticipated Discharge Destination: Home Treatment Diagnosis (ICD 10 Codes): R26.2 difficulty walking. R26.81 balance impaired. M62.81 muscle weakness Has the Physician been added for Co-signature?: Yes
--- NOTE | 2017-08-13 15:21 | RS.OTINEVL ---
Subjective - Patient information Date of Evaluation: 08/13/17 Date of Arrival on Unit: 08/13/17 Admitted From:: Facility Transfer (transferred from [facility]) Usual Living Arrangement: Alone Living Arrangement Comments: lives alone, son and qyyucsiv-rd-vyl come and checks on pt Home Environment: House, Ramp Medical History: Hypertension, CHF, Arthritis (OA, RA) Medical History Comments:: cardiomegaly, pulmonary edema, anemia, depression, osteoporosis LATEX ALLERGY?: No Surgical History Comments:: cardioversion Medications: see chart Subjective Information/ Patient Comments:: "It is difficult to put my socks and shoes on with this heavy thing hanging around my neck." - Level of function Prior to this admission, the patient could do the following:: Partially Dependent Ambulation Abilities prior to this admission: Pt was living at home prior to her illness. Pt lives alone. Pt was completing all ADLS independently prior to the hospitalization at [facility] 2 weeks ago. Current Level of Function: Partially Dependent Current Equipment Used at Home: has rollator, bsc but was not using at home. Pain Assessment - Pain Side: bilateral Pain Location Body Site: Shoulder Pain Aggravating Factors: ADL's Pain Alleviating Factors: Inactivity Interventions - Objective Patient Orientation: Person, Place, Time Current Interventions: IV's, Telemetry Observation: Pt is weak and has impaired balance when walking with a RW. Pt reports she is very weak. Interventions - ROM Right Upper Extremity AROM: Slight limitation Left Upper Extremity AROM: Slight limitation - Strength Right Upper Extremity Strength: Mild Weakness Left Upper Extremity Strength: Mild Weakness - Sensation Right Upper Extremity Sensation: Intact/Normal Left Upper Extremity Sensation: Intact/Normal Balance - Sitting Balance Static Sitting Balance: Fair Dynamic Sitting Balance: Fair - Standing Balance Static Standing Balance: Poor Dynamic Standing Balance: Poor - Comments Balance Assessment Comments: Fair- Functional Mobility - Bed Mobility Rolling R/L: Independent Scooting: Independent Supine to Sit: Independent Sit to Supine: Independent - Transfers Sit to Stand: CGA Stand to Sit: CGA Stand Pivot Transfers: CGA - Ambulation Weight Bearing Status: FWB Assistive Device Used: Rolling Walker Assistance needed with Ambulation: CGA Comments:: Pt waddles when she walks and is dizzy most of the time. - Safety Awareness Safety Awareness: Good ZEENAT INDEX SCORE: 56 Additional Treatment Performed - Additional units charged ADL: 15 - Time with patient Total treatment time: 30 Activities Would you be interested in leaving your room for activities?: Yes Would you enjoy group activities?: Yes What types of things do you enjoy doing? Any Hobbies?: Watch TV, nap Patient Interests:: Watching Television Patient Education Patient Education: Education of diagnosis, Home Exercise Program, Education of Plan of Care Teaching Recipient: Patient Teaching Methods: Discussion Assessment Problem List:: Decreased level of function, Requires training/education, Decreased safety/Risk of falls, Weakness Rehab Potential: Good Further Therapy Indicated?: Yes Candidate for Swing Bed for Therapy Services?: yes Evaluation Complexity: HISTORY: Medium, EXAM OF BODY SYSTEMS: Medium, CLINICAL DECISION MAKING: Medium Short Term Goals - Goals GOAL 1: Pt to tolerate 15 minutes of standing activity without SOA. Goal to be met by: 08/20/17 GOAL 2: Pt to complete toilet transfer Mod-I with RW. Goal to be met by: 08/20/17 GOAL 3: Pt to tolerate 1-2 # wt for BUE therex . Goal to be met by: 08/20/17 GOAL 4: Pt to be independent with LB dressing sitting in chair. Goal to be met by: 08/20/17 Cash Grain Farmer Goals GOAL 1: Pt to increase independence of self care management. Goal to be met by: 08/27/17 GOAL 2: Pt to be independent with home exercise program. Goal to be met by: 08/27/17 GOAL 3: Pt to increase dyn. standing balance to 20 minutes. Goal to be met by: 08/27/17 Plan Plan of Care: Therapeutic EX, Neuromuscular Re-Educ, Therapeutic Activity, Self- Care/Home Management Frequency of Treatment: 1-2 X day, as tolerated Duration of Treatment: 2 Weeks Anticipated Discharge Destination: Home Treatment Diagnosis (ICD 10 Codes): M62.81 Muscle weakness Has the Physician been added for Co-signature?: Yes
[2017-08-13] MEDS: ZOLOFT PO SCH (20:13)
[2017-08-13] MEDS: FLORASTOR PO SCH (20:14)
[2017-08-13] MEDS: LOPRESSOR PO SCH (20:14)
[2017-08-13] MEDS: CALCIUM 500 + VIT D 200 MG TABLET PO SCH (20:15)
[2017-08-13] MEDS: PRADAXA PO SCH (20:16)
[2017-08-13] MEDS: LIPITOR PO SCH (20:16)
[2017-08-13] MEDS: CORDARONE PO SCH (20:16)
[2017-08-13] MEDS: NYSTOP POWDER TP SCH (20:17)
[2017-08-13] MEDS: HYDROCORTISONE 1% CREAM TP SCH (20:41)
[2017-08-13] MEDS ORDERED: ATORVASTATIN CALCIUM PO SCH (21:00)
[2017-08-13] MEDS ORDERED: ZOLOFT PO SCH (21:00)
[2017-08-13] MEDS ORDERED: DABIGATRAN ETEXILATE MESYLATE PO SCH (21:00)
[2017-08-13] MEDS: MUCINEX PO SCH (22:48)
[2017-08-14] MEDS: FOSAMAX PO SCH (05:41)
[2017-08-14] MEDS: PEPCID PO SCH (05:42)
[2017-08-14] MEDS: LASIX TAB PO SCH (05:43)
--- NOTE | 2017-08-14 08:55 | PCM.PROG ---
Attending Provider: ATTENDING PROVIDER: Dr. TROY FULLER This patient is seen with Selin Estevez, Nurse Practitioner. DATE OF SERVICE: 08/14/17 SUBJECTIVE: This 76 year old WHITE/ F was hospitalized 08/13/17. The patient is sitting in chair, alert. She has been seen by PT/OT. Heart rate is well- controlled. The patient is in stable condition. She was admitted with possible contact allergy on back and chest, which is improving. REVIEW OF SYSTEMS: CONSTITUTIONAL: No night sweats. No malaise, lethargy. No fever or chills. HEENT: Eyes: No visual changes. No eye pain. No eye discharge. ENT: No runny nose. No epistaxis. No sinus pain. No odynophagia. No congestion. RESPIRATORY: No cough, no congestion. No hemoptysis. No shortness of breath. CARDIOVASCULAR: No angina symptoms. No CHF symptoms. No atypical chest pain for CAD. No palpitations. No orthopnea.. GASTROINTESTINAL: No abdominal pain. No nausea or vomiting. No diarrhea or constipation. No hematemesis. No hematochezia. GENITOURINARY: No urgency. No frequency. No dysuria. No hematuria. No obstructive symptoms. No discharge. No pain. No significant abnormal bleeding. MUSCULOSKELETAL: No musculoskeletal pain; no joint swelling. NEUROLOGICAL: Awake, alert, oriented to time, place and person. No headache. No neck pain. No syncope. No seizures. No dizziness. PSYCHIATRIC: Not anxious. No depression. No suicidal thoughts. No homicidal thoughts. SKIN: Rash. No lesions. No wounds. ENDOCRINE: No unexplained weight loss. No weight gain. HEMATOLOGIC/LYMPHATIC: No anemia. No purpura. No petechiae. No prolonged or excessive bleeding. No palpable lymph nodes. PHYSICAL EXAMINATION: GENERAL: The patient is awake, alert and oriented, sitting in chair in no distress. VITAL SIGNS: Temperature 97.7 F, Pulse 63, Respiratory Rate 12, BP 141/76, Pulse Ox 94% HEENT: Head normocephalic, atraumatic. Eyes: Extraocular muscles are intact. Pupils are equal, round and reactive to light and accommodation. Ears: No lesions. Nose appeared normal. Throat: No exudate or erythema. NECK: Supple. No JVD, no carotid bruit. No lymphadenopathy or thyromegaly. LUNGS: Clear to auscultation. Percussion note normal. Chest symmetrical. HEART: S1, S2, no S3. No murmurs. No cyanosis or clubbing. No ascites. Pulses: Dorsalis pedis and posterior tibial pulses +1 to +2 both sides. ABDOMEN: Soft. Non-tender. Bowel sounds active. No CVA tenderness. No mass felt. EXTREMITIES: Trace bilateral edema. Full range of motion of all extremities, equal. NEUROLOGIC: No focal deficit. Cranial nerves II through XII are grossly intact. No headache, no double vision or headache. SKIN: Warm and dry. Light pink flat rash on upper chest and back. LYMPHATIC: No palpable lymph nodes/no lymphedema. MUSCULOSKELETAL: Normal joints with no swelling. Muscle tone is normal. LAB REVIEW: 08/13/17 12:00 08/13/17 12:00 08/13/17 12:00: Sodium 136, Potassium 4.1, Chloride 97 L, Carbon Dioxide 33 H, Anion Gap 10.1, BUN 8, Creatinine 0.62, Estimated GFR (MDRD) 94.00, BUN/ Creatinine Ratio 12.90, Glucose 91, Calcium 9.3, Total Bilirubin 1.0, AST 33, ALT 69, Alkaline Phosphatase 79, Total Protein 6.5, Albumin 2.8 L, Globulin 3.7 , Albumin/Globulin Ratio 0.76, TSH 1.222 08/13/17 12:00: WBC 7.61, RBC 3.45 L, Hgb 10.3 L, Hct 31.5 L, MCV 91.3, MCH 29.9 , MCHC 32.7, RDW Coeff of Roya 13.8, Plt Count 361, Immature Gran % (Auto) 0.4, Neut % (Auto) 55.2, Lymph % (Auto) 30.6, Fergus % (Auto) 10.5 H, Eos % (Auto) 3.0 , Baso % (Auto) 0.3, Immature Gran # (Auto) 0.0, Neut # (Auto) 4.2, Lymph # ( Auto) 2.3, Fergus # (Auto) 0.8, Eos # (Auto) 0.2, Baso # (Auto) 0.0 ASSESSMENT: 1. Generalized weakness 2. History of atrial fib/flutter with RVR 3. Recent E. coli urosepsis 4. Anxiety 5. Depression 6. Hypertension PLAN: 1. PT/OT 2. Hydrocortisone cream to rash 3. Continue telemetry Plan and coordination of the patient's care discussed in the presence of Coal Passer and nurse. CONDITION: Stable SCRIBED BY: ROSITA PHILIPPE Casket Coverer scribed while in presence of service performed by Dr. Fuller/Selin Estevez APRN on 08/14/17 ([id number])
[2017-08-14] MEDS: LOPRESSOR PO SCH ×2 (09:06→20:13)
[2017-08-14] MEDS: MUCINEX PO SCH ×2 (09:06→20:12)
[2017-08-14] MEDS: CALCIUM 500 + VIT D 200 MG TABLET PO SCH ×2 (09:07→20:12)
[2017-08-14] MEDS: CORDARONE PO SCH ×2 (09:07→20:13)
[2017-08-14] MEDS: ZYRTEC PO SCH (09:07)
[2017-08-14] MEDS: NYSTOP POWDER TP SCH ×2 (09:08→20:11)
[2017-08-14] MEDS: FLORASTOR PO SCH ×2 (09:10→20:10)
[2017-08-14] MEDS: HYDROCORTISONE 1% CREAM TP SCH ×2 (09:10→20:11)
[2017-08-14] MEDS: PRADAXA PO SCH ×2 (09:11→20:12)
[2017-08-14] MEDS: ZOLOFT PO SCH (20:12)
[2017-08-14] MEDS: LIPITOR PO SCH (20:12)
[2017-08-15] MEDS: PEPCID PO SCH (06:27)
[2017-08-15] MEDS: LASIX TAB PO SCH (06:27)
[2017-08-15] MEDS: HYDROCORTISONE 1% CREAM TP SCH ×2 (08:32→20:45)
[2017-08-15] MEDS: NYSTOP POWDER TP SCH ×2 (08:33→20:45)
[2017-08-15] MEDS: FLORASTOR PO SCH ×2 (08:33→20:42)
[2017-08-15] MEDS: CALCIUM 500 + VIT D 200 MG TABLET PO SCH ×2 (08:34→20:44)
[2017-08-15] MEDS: ZYRTEC PO SCH (08:34)
[2017-08-15] MEDS: CORDARONE PO SCH ×2 (08:34→20:44)
[2017-08-15] MEDS: LOPRESSOR PO SCH ×2 (08:34→20:42)
[2017-08-15] MEDS: MUCINEX PO SCH ×2 (08:34→20:42)
[2017-08-15] MEDS: PRADAXA PO SCH ×2 (08:35→20:43)
[2017-08-15] MEDS ORDERED: XANAX PO SCH (09:00)
[2017-08-15] MEDS ORDERED: LANOXIN IVP STA ×2 (10:03→14:33)
--- NOTE | 2017-08-15 10:53 | PN ---
DATE OF SERVICE: 08/13/17 SUBJECTIVE: This patient was recently admitted to swing bed. Later on transferred because of atrial flutter with 2:1, rate of 140 per minute. The patient had this same rhythm four weeks ago when she was cardioverted and was then discharged home. Eventually she ended up at [facility] for Swing Bed for Physical Therapy. At that time, the patient was noted to be in atrial flutter and was transferred back to [place] under hospitalist/crusher screen repairer, Dr. Palencia. Digoxin and Amiodarone used along with Cardizem drip. The patient converted to sinus rhythm with 2 to 3 second pauses. The patient was taken off Cardizem because of bradycardia. The patient had junctional rhythm with rate in the 30s. The patient was then stabilized with rate of 55 to 65 on Metoprolol 12.5 twice a day and Amiodarone would be withdrawn later on. The patient is feeling fine. She is sitting in the chair. PHYSICAL EXAMINATION: GENERAL: The patient is oriented to time, place and person. VITAL SIGNS: Temperature 98, pulse 80, respiratory rate 15, BP 130/70. HEENT: Head normocephalic, atraumatic. Eyes: Extraocular muscles are intact. Pupils are equal, round and reactive to light and accommodation. Ears: No lesions. Nose appeared normal. Throat: No exudate or erythema. NECK: Supple. No JVD, no carotid bruit. No lymphadenopathy or thyromegaly. LUNGS: Decreased breath sounds but clear to auscultation. Percussion note normal. Chest symmetrical. HEART: S1, S2, no S3. No murmurs. No cyanosis or clubbing. No ascites. Pulses: Dorsalis pedis and posterior tibial pulses +1 to +2 both sides. ABDOMEN: Soft. Nontender. Bowel sounds active. No CVA tenderness. No mass felt. EXTREMITIES: No edema. Full range of motion of all extremities, equal. BLOOD DONOR RECRUITER SUPERVISOR: Deep tendon reflexes, motor and sensory all normal. SKIN: Not dry. Intact. Turgor - normal. LYMPHATIC: No palpable lymph nodes/no lymphedema. MUSCULOSKELETAL: Normal joints with no swelling. Muscle tone is normal. ASSESSMENT: 1. Atrial flutter with history of atrial flutter/fib now in sinus rhythm. The patient is status post cardioversion 4 weeks ago. 2. Diastolic congestive heart failure. 3. Hypertension 4. Dyslipidemia 5. Depression PLAN: 1. Continue Amiodarone 2. Continue Metoprolol (Toprol) 3. Continue Atorvastatin 4. Continue Buspirone 5. Will also do telemetry CONDITION: Stable TIME SPENT: More than 30 minutes. Plan and coordination of the patient's care discussed in the presence of nurse. JOSE
--- NOTE | 2017-08-15 11:02 | PN ---
DATE OF SERVICE: 08/14/17 - SWING BED SUBJECTIVE: The patient is doing well, seen with the nurse practitioner. No palpitations. PHYSICAL EXAMINATION: HEENT: Head normocephalic, atraumatic. Eyes: Extraocular muscles are intact. Pupils are equal, round and reactive to light and accommodation. Ears: No lesions. Nose appeared normal. Throat: No exudate or erythema. NECK: Supple. No JVD, no carotid bruit. No lymphadenopathy or thyromegaly. LUNGS: Clear to auscultation. Percussion note normal. Chest symmetrical. HEART: S1, S2, no S3. No murmurs. No cyanosis or clubbing. No ascites. Pulses: Dorsalis pedis and posterior tibial pulses +1 to +2 both sides. ABDOMEN: Soft. Nontender. Bowel sounds active. No CVA tenderness. No mass felt. EXTREMITIES: No edema. Full range of motion of all extremities, equal. WAREHOUSE DRIVER: SKIN: Not dry. Intact. Turgor - normal. LYMPHATIC: No palpable lymph nodes/no lymphedema. MUSCULOSKELETAL: Normal joints with no swelling. Muscle tone is normal. ASSESSMENT: The patient is gaining strength, appetite is better. She is in a rhythm. She is on Amiodarone along with Metoprolol 12.5 twice a day. No CHF systems. TIME SPENT: More than 30 minutes. Plan and coordination of the patient's care discussed in the presence of nurse. JOSE
[2017-08-15] MEDS ORDERED: LOPRESSOR PO STA (14:32)
[2017-08-15] MEDS: XANAX PO SCH ×2 (15:12→20:43)
[2017-08-15] MEDS: LIPITOR PO SCH (20:43)
[2017-08-15] MEDS: ZOLOFT PO SCH (20:44)
[2017-08-16] MEDS: PEPCID PO SCH (06:34)
[2017-08-16] MEDS: LASIX TAB PO SCH (06:34)
[2017-08-16] MEDS ORDERED: LOPRESSOR PO STA (09:12)
[2017-08-16] MEDS: FLORASTOR PO SCH ×2 (09:18→22:04)
[2017-08-16] MEDS: MUCINEX PO SCH ×2 (09:18→22:00)
[2017-08-16] MEDS: CORDARONE PO SCH ×2 (09:18→22:08)
[2017-08-16] MEDS: ZYRTEC PO SCH (09:18)
[2017-08-16] MEDS: CALCIUM 500 + VIT D 200 MG TABLET PO SCH ×2 (09:18→21:57)
[2017-08-16] MEDS: XANAX PO SCH ×3 (09:19→21:58)
[2017-08-16] MEDS: PRADAXA PO SCH ×2 (09:19→22:01)
[2017-08-16] MEDS: NYSTOP POWDER TP SCH ×2 (09:19→22:11)
[2017-08-16] MEDS: LOPRESSOR PO SCH ×2 (09:23→21:59)
[2017-08-16] MEDS: HYDROCORTISONE 1% CREAM TP SCH ×2 (09:24→22:10)
[2017-08-16] MEDS ORDERED: LANOXIN IVP STA (11:17)
[2017-08-16] MEDS ORDERED: LANOXIN IVP ONE (21:00)
[2017-08-16] MEDS: LIPITOR PO SCH (21:58)
[2017-08-16] MEDS: ZOLOFT PO SCH (22:05)
[2017-08-17] MEDS: PEPCID PO SCH (05:35)
[2017-08-17] MEDS: LASIX TAB PO SCH (05:36)
[2017-08-17] MEDS ORDERED: LOPRESSOR PO STA (08:01)
[2017-08-17] MEDS: HYDROCORTISONE 1% CREAM TP SCH ×2 (10:06→20:28)
[2017-08-17] MEDS: FLORASTOR PO SCH ×2 (10:07→20:22)
[2017-08-17] MEDS: ZYRTEC PO SCH (10:07)
[2017-08-17] MEDS: NYSTOP POWDER TP SCH ×2 (10:07→20:21)
[2017-08-17] MEDS: CALCIUM 500 + VIT D 200 MG TABLET PO SCH ×2 (10:08→20:22)
[2017-08-17] MEDS: PRADAXA PO SCH ×2 (10:08→20:21)
[2017-08-17] MEDS: CORDARONE PO SCH (10:08)
[2017-08-17] MEDS: MUCINEX PO SCH ×2 (10:08→20:22)
[2017-08-17] MEDS: XANAX PO SCH ×3 (10:08→20:23)
[2017-08-17] MEDS: LOPRESSOR PO SCH ×2 (10:51→20:23)
[2017-08-17] MEDS ORDERED: TYLENOL PO STA (15:58)
[2017-08-17] MEDS: LIPITOR PO SCH (20:22)
[2017-08-17] MEDS: ZOLOFT PO SCH (20:23)
[2017-08-18] MEDS: LASIX TAB PO SCH (05:38)
[2017-08-18] MEDS: PEPCID PO SCH (05:38)
[2017-08-18] MEDS ORDERED: LANOXIN IVP STA ×2 (08:36→21:17)
[2017-08-18] MEDS: BETAPACE PO SCH ×2 (09:08→20:17)
[2017-08-18] MEDS: CALCIUM 500 + VIT D 200 MG TABLET PO SCH ×2 (09:09→20:25)
[2017-08-18] MEDS: FLORASTOR PO SCH ×2 (09:10→20:20)
[2017-08-18] MEDS: CORDARONE PO SCH (09:10)
[2017-08-18] MEDS: MUCINEX PO SCH ×2 (09:10→20:17)
[2017-08-18] MEDS: NYSTOP POWDER TP SCH ×2 (09:11→20:16)
[2017-08-18] MEDS: HYDROCORTISONE 1% CREAM TP SCH ×2 (09:11→20:17)
[2017-08-18] MEDS: PRADAXA PO SCH ×2 (09:12→20:21)
[2017-08-18] MEDS: ZYRTEC PO SCH (09:12)
[2017-08-18] MEDS: XANAX PO SCH ×3 (09:22→20:17)
--- NOTE | 2017-08-18 10:44 | HP ---
DATE OF SERVICE: 08/13/17 - SWING BED HISTORY OF PRESENT ILLNESS: This 76-year-old white female, whose primary care provider is Dr. Fortune in [place]. She was recently hospitalized at [facility] after being admitted here for swing bed placement however she developed atrial flutter with uncontrollable rate. She was transferred. Flutter seems to be under control and she is now back here for physical and occupational therapy. PAST MEDICAL HISTORY: Atrial flutter with RVR, had cardioversion 07/29/17. She is on Pradaxa. Urosepsis with E. coli CHF Pulmonary edema Hyponatremia Hypertension Hyperglycemia with A1C of 5.3 on 07/09/17 History of falls Acute on chronic diastolic CHF Dyslipidemia Hypertension Normocytic anemia with iron deficiency Nocturnal hypoxemia Osteoporosis History of ITP History of hypokalemia PAST SURGICAL HISTORY: Tonsillectomy REVIEW OF SYSTEMS: CONSTITUTIONAL: Positive for weakness, fatigue. No night sweats. No malaise, lethargy. No fever or chills. HEENT: Eyes: No visual changes. No eye pain. No eye discharge. ENT: No runny nose. No epistaxis. No sinus pain. No sore throat. No odynophagia. No ear pain. No congestion. RESPIRATORY: No cough, no congestion. No hemoptysis. No shortness of breath. CARDIOVASCULAR: No angina symptoms. No CHF symptoms. No atypical chest pain for CAD. No palpitations. No PND. No orthopnea. GASTROINTESTINAL: No abdominal pain. No nausea or vomiting. No diarrhea or constipation. No hematemesis. No hematochezia. GENITOURINARY: No urgency. No frequency. No dysuria. No hematuria. No obstructive symptoms. No discharge. No pain. No significant abnormal bleeding. MUSCULOSKELETAL: No musculoskeletal pain. No joint swelling. No arthritis. NEUROLOGICAL: No headache. No neck pain. No syncope. No seizures. No dizziness. PSYCHIATRIC: Not anxious. No depression. No suicidal thoughts. No homicidal thoughts. SKIN: No rash. No lesions. No wounds. ENDOCRINE: No unexplained weight loss. No weight gain. HEMATOLOGIC/LYMPHATIC: No anemia. No purpura. No petechiae. No prolonged or excessive bleeding. No palpable lymph nodes. PERSONAL/FAMILY/SOCIAL HISTORY: The patient is , lives at home alone. Family history of coronary artery disease. MEDICATIONS: (Home) Lasix 20 mg one tab p.o. q.d a.c. Mucinex 600 mg one tab p.o. b.i.d. Zestril 10 mg p.o. q.p.m. Zoloft 1.5 tab p.o. bedtime Pradaxa 150 mg one cap p.o. b.i.d. Florastor 250 mg one cap p.o. b.i.d. ALLERGIES: PENICILLINS PHYSICAL EXAMINATION: HEENT: Head normocephalic, atraumatic. Eyes: Extraocular muscles are intact. Pupils are equal, round and reactive to light and accommodation. Ears: No lesions. Nose appeared normal. Throat: No exudate or erythema. NECK: Supple. No JVD, no carotid bruit. No lymphadenopathy or thyromegaly. LUNGS: Diminished breath sounds bilaterally. Clear to auscultation. Percussion note normal. Chest symmetrical. HEART: Regular rate and rhythm. S1, S2, no S3. No murmurs. No cyanosis or clubbing. No ascites. Pulses: Dorsalis pedis and posterior tibial pulses +1 to +2 bilaterally. ABDOMEN: Soft. Nontender. Bowel sounds active. No CVA tenderness. No mass felt. EXTREMITIES: No edema. Full range of motion of all extremities, equal. NEUROLOGIC: Alert, oriented times three. No focal deficit. Cranial nerves II through XII are grossly intact. No headache, no double vision or headache. SKIN: Not dry. Intact. Turgor - normal. LYMPHATIC: No palpable lymph nodes/no lymphedema. MUSCULOSKELETAL: Normal joints with no swelling. Muscle tone is normal. ASSESSMENT: 1. GENERALIZED WEAKNESS 2. HISTORY OF ATRIAL FLUTTER WITH RVR 3. RECENT UROSEPSIS, POSITIVE FOR E.COLI 4. GENERALIZED DECLINE IN FUNCTION 5. LEG WEAKNESS 6. HYPERTENSION 7. CHF 8. CARDIOMEGALY 9. HISTORY OF CARDIOVERSION 10. DYSLIPIDEIA 11. HYPERGLYCEMIA 12. IRON DEFICIENCY ANEMIA PLAN: 1. Admit to swing bed. 2. Routine telemetry for 48 hours. 3. Continue all medications including Pradaxa. 4. Medication changes noted. 5. Start Physical and Occupational Therapy. 6. CBC, CMP every other day. 7. Low sodium diet. 8. Fall precautions. 9. Will follow closely. TIME SPENT: More than 70 minutes. [facility]
[2017-08-18] MEDS: LIPITOR PO SCH (20:19)
[2017-08-18] MEDS: ZOLOFT PO SCH (20:19)
[2017-08-19] MEDS: PEPCID PO SCH (05:32)
[2017-08-19] MEDS: LASIX TAB PO SCH (05:32)
[2017-08-19] MEDS: CALCIUM 500 + VIT D 200 MG TABLET PO SCH ×2 (08:19→20:22)
[2017-08-19] MEDS: FLORASTOR PO SCH ×2 (08:19→20:23)
[2017-08-19] MEDS: ZYRTEC PO SCH (08:20)
[2017-08-19] MEDS: BETAPACE PO SCH ×2 (08:21→20:22)
[2017-08-19] MEDS: MUCINEX PO SCH ×2 (08:21→20:21)
[2017-08-19] MEDS: PRADAXA PO SCH ×2 (08:21→20:22)
[2017-08-19] MEDS: CORDARONE PO SCH (08:21)
[2017-08-19] MEDS: NYSTOP POWDER TP SCH ×2 (08:23→20:24)
[2017-08-19] MEDS: XANAX PO SCH ×2 (10:54→20:22)
[2017-08-19] MEDS: LIPITOR PO SCH (20:23)
[2017-08-19] MEDS: ZOLOFT PO SCH (20:23)
[2017-08-20] MEDS: PEPCID PO SCH (06:31)
[2017-08-20] MEDS: LASIX TAB PO SCH (06:31)
[2017-08-20] MEDS: BETAPACE PO SCH ×3 (08:06→22:03)
[2017-08-20] MEDS: CORDARONE PO SCH (08:36)
[2017-08-20] MEDS: PRADAXA PO SCH ×2 (08:55→20:35)
[2017-08-20] MEDS: NYSTOP POWDER TP SCH ×2 (08:56→20:39)
[2017-08-20] MEDS: FLORASTOR PO SCH ×2 (08:56→20:35)
[2017-08-20] MEDS: MUCINEX PO SCH ×2 (08:56→20:35)
[2017-08-20] MEDS: ZYRTEC PO SCH (08:56)
[2017-08-20] MEDS: CALCIUM 500 + VIT D 200 MG TABLET PO SCH ×2 (08:56→20:32)
[2017-08-20] MEDS: XANAX PO SCH ×2 (08:58→20:30)
--- NOTE | 2017-08-20 09:48 | PN ---
DATE OF SERVICE: 08/15/17 SUBJECTIVE: The patient was seen and examined with Nurse Practitioner. The patient's heart rate is 110 per minute, she is in atrial flutter. She is on Amiodarone and Metoprolol. We are going to given 0.25mg of Lovenox and put her on Xanax 0.25mg three times a day. Again the patient was checked at 2:30pm and the rate was still the same so we will given 0.25mg more along with extra dose of Metoprolol. The patient is not in failure, she is stable otherwise. Continue the same treatment. Monitor the patient with telemetry and also check the TSH. CONDITION: Stable. TIME SPENT: More than 30 minutes. Plan and coordination of the patient's care discussed in the presence of nurse. JOSE
--- NOTE | 2017-08-20 13:30 | PN ---
DATE OF SERVICE: 08/17/17 SUBJECTIVE: The patient is in the swing bed. The patient is doing well. She is up and about and physical therapy is advancing good. She is motivated and feeling better. Appetite has improved. REVIEW OF SYSTEMS: CONSTITUTIONAL: No night sweats. No fatigue, malaise, lethargy. No fever or chills. HEENT: Eyes: No visual changes. No eye pain. No eye discharge. ENT: No runny nose. No epistaxis. No sinus pain. No sore throat. No odynophagia. No congestion. RESPIRATORY: No cough, no congestion. No hemoptysis. No shortness of breath. CARDIOVASCULAR: No angina symptoms. No CHF symptoms. No atypical chest pain for CAD. No palpitations. No orthopnea. GASTROINTESTINAL: No abdominal pain. No nausea or vomiting. No diarrhea or constipation. No hematemesis. No hematochezia. GENITOURINARY: No urgency. No frequency. No dysuria. No hematuria. No obstructive symptoms. No discharge. No pain. No significant abnormal bleeding. MUSCULOSKELETAL: No musculoskeletal pain; no joint swelling. NEUROLOGICAL: No headache. No neck pain. No syncope. No seizures. No dizziness. PSYCHIATRIC: Not anxious. No depression. No suicidal thoughts. No homicidal thoughts. SKIN: No rash. No lesions. No wounds. ENDOCRINE: No unexplained weight loss. No weight gain. HEMATOLOGIC/LYMPHATIC: No anemia. No purpura. No petechiae. No prolonged or excessive bleeding. No palpable lymph nodes. PHYSICAL EXAMINATION: HEENT: Head normocephalic, atraumatic. Eyes: Extraocular muscles are intact. Pupils are equal, round and reactive to light and accommodation. Ears: No lesions. Nose appeared normal. Throat: No exudate or erythema. NECK: Supple. No JVD, no carotid bruit. No lymphadenopathy or thyromegaly. LUNGS: Clear to auscultation. Percussion note normal. Chest symmetrical. HEART: S1, S2, no S3. No murmurs. No cyanosis or clubbing. No ascites. Pulses: Dorsalis pedis and posterior tibial pulses +1 to +2 both sides. ABDOMEN: Soft. Nontender. Bowel sounds active. No CVA tenderness. No mass felt. EXTREMITIES: No edema. Full range of motion of all extremities, equal. NEUROLOGIC: No focal deficit. Cranial nerves II through XII are grossly intact. No headache, no double vision or headache. SKIN: Not dry. Intact. Turgor - normal. LYMPHATIC: No palpable lymph nodes/no lymphedema. MUSCULOSKELETAL: Normal joints with no swelling. Muscle tone is normal. ASSESSMENT: 1. Weakness, muscles and all that has improved 2. Atrial flutter with 2:1 rate 121 per minute, was given extra dose of Lanoxin. Lanoxin level is normal. Was also given extra dose of Metoprolol with not much response. CONDITION: Stable. PLAN: 1. Will check Lanoxin level and given extra dose of Metoprolol 2. May try Betapace this evening 3. This patient is up and about and there is no evidence of of CHF clinically as well as by symptoms. TIME SPENT: More than 30 minutes. Plan and coordination of the patient's care discussed in the presence of nurse. JOSE
[2017-08-20] MEDS: ZOLOFT PO SCH (20:32)
[2017-08-20] MEDS: LIPITOR PO SCH (20:35)
[2017-08-21] MEDS: FOSAMAX PO SCH (05:34)
[2017-08-21] MEDS: LASIX TAB PO SCH (05:58)
[2017-08-21] MEDS: PEPCID PO SCH (05:58)
--- NOTE | 2017-08-21 08:50 | PCM.PROG ---
Attending Provider: ATTENDING PROVIDER: Dr. TROY FULLER This patient is seen with Selin Estevez, Nurse Practitioner. DATE OF SERVICE: 08/21/17 SUBJECTIVE: This 76 year old WHITE/ F was hospitalized 08/13/17. The patient is sitting in chair, alert. She has red, tender lesion on left wrist that was draining yesterday likely from previous IV site. The patient is afebrile but states area is sore. Heart rate has been controlled with a few bradycardic episodes managed by Dr. Fuller today. REVIEW OF SYSTEMS: CONSTITUTIONAL: No night sweats. No fatigue, malaise, lethargy. No fever or chills. HEENT: Eyes: No visual changes. No eye pain. No eye discharge. ENT: No runny nose. No epistaxis. No sinus pain. No odynophagia. No congestion. RESPIRATORY: No cough, no congestion. No hemoptysis. No shortness of breath. CARDIOVASCULAR: No angina symptoms. No CHF symptoms. No atypical chest pain for CAD. No palpitations. No orthopnea.. GASTROINTESTINAL: No abdominal pain. No nausea or vomiting. No diarrhea or constipation. No hematemesis. No hematochezia. GENITOURINARY: No urgency. No frequency. No dysuria. No hematuria. No obstructive symptoms. No discharge. No pain. No significant abnormal bleeding. MUSCULOSKELETAL: No musculoskeletal pain; no joint swelling. NEUROLOGICAL: Awake, alert, oriented to time, place and person. No headache. No neck pain. No syncope. No seizures. No dizziness. PSYCHIATRIC: Not anxious. No depression. No suicidal thoughts. No homicidal thoughts. SKIN: No rash. Red lesion left wrist. ENDOCRINE: No unexplained weight loss. No weight gain. HEMATOLOGIC/LYMPHATIC: No anemia. No purpura. No petechiae. No prolonged or excessive bleeding. No palpable lymph nodes. PHYSICAL EXAMINATION: GENERAL: The patient is awake, alert and oriented, sitting in chair in no distress. VITAL SIGNS: Temperature 97.5 F, Pulse 52, Respiratory Rate 16, BP 150/52, Pulse Ox 100% HEENT: Head normocephalic, atraumatic. Eyes: Extraocular muscles are intact. Pupils are equal, round and reactive to light and accommodation. Ears: No lesions. Nose appeared normal. Throat: No exudate or erythema. NECK: Supple. No JVD, no carotid bruit. No lymphadenopathy or thyromegaly. LUNGS: Diminished breath sounds. Clear to auscultation. Percussion note normal. Chest symmetrical. HEART: S1, S2, no S3. No murmurs. No cyanosis or clubbing. No ascites. Pulses: Dorsalis pedis and posterior tibial pulses +1 to +2 both sides. ABDOMEN: Soft. Non-tender. Bowel sounds active. No CVA tenderness. No mass felt. EXTREMITIES: No edema. Full range of motion of all extremities, equal. NEUROLOGIC: No focal deficit. Cranial nerves II through XII are grossly intact. No headache, no double vision or headache. SKIN: Warm and dry. 1 cm lesion left wrist, small amount of induration with surrounding erythema mildly tender, no drainage today. Turgor-normal. LYMPHATIC: No palpable lymph nodes/no lymphedema. MUSCULOSKELETAL: Normal joints with no swelling. Muscle tone is normal. LAB REVIEW: 08/21/17 05:05 08/21/17 05:05 08/21/17 05:05: Sodium 134 L, Potassium 4.1, Chloride 95 L, Carbon Dioxide 31, Anion Gap 12.1, BUN 13, Creatinine 0.66, Estimated GFR (MDRD) 87.00, BUN/ Creatinine Ratio 19.69, Glucose 96, Calcium 9.2, Total Bilirubin 0.8, AST 40 H, ALT 60, Alkaline Phosphatase 74, Total Protein 6.4, Albumin 2.6 L, Globulin 3.8 , Albumin/Globulin Ratio 0.68 08/21/17 05:05: WBC 8.75, RBC 3.36 L, Hgb 9.7 L, Hct 30.4 L, MCV 90.5, MCH 28.9 , MCHC 31.9, RDW Coeff of Roya 13.9, Plt Count 300, Immature Gran % (Auto) 0.3, Neut % (Auto) 51.6, Lymph % (Auto) 32.8, Pacific % (Auto) 11.2 H, Eos % (Auto) 3.8 , Baso % (Auto) 0.3, Immature Gran # (Auto) 0.0, Neut # (Auto) 4.5, Lymph # ( Auto) 2.9, [place] # (Auto) 1.0, Eos # (Auto) 0.3, Baso # (Auto) 0.0 ASSESSMENT: 1. Possible cellulitis left wrist 2. Generalized weakness 3. History of atrial fib/flutter with RVR 4. Recent E. coli urosepsis 5. Anxiety 6. Depression 7. Hypertension PLAN: 1. Wound culture pending 2. Warm compresses three times a day to left wrist 3. Bactroban to affected area on wrist 4. Clindamycin 300 mg p.o. t.i.d. Plan and coordination of the patient's care discussed in the presence of Process Architect and nurse. CONDITION: Stable SCRIBED BY: Vanessa MENON scribed while in presence of service performed by Dr. uFller/Selin Estevez APRN on 08/21/17 (0800)
[2017-08-21] MEDS: PRADAXA PO SCH ×2 (09:42→21:53)
[2017-08-21] MEDS: MUCINEX PO SCH ×2 (09:42→21:53)
[2017-08-21] MEDS: FLORASTOR PO SCH ×2 (09:42→21:52)
[2017-08-21] MEDS: CALCIUM 500 + VIT D 200 MG TABLET PO SCH ×2 (09:42→21:55)
[2017-08-21] MEDS: ZYRTEC PO SCH (09:43)
[2017-08-21] MEDS: NYSTOP POWDER TP SCH ×2 (09:43→21:58)
[2017-08-21] MEDS: BACTROBAN TP SCH ×2 (09:43→21:51)
[2017-08-21] MEDS: CORDARONE PO SCH (09:43)
[2017-08-21] MEDS: LOPRESSOR PO SCH ×2 (09:43→21:57)
[2017-08-21] MEDS: CLEOCIN PO SCH ×3 (09:43→21:53)
[2017-08-21] MEDS: XANAX PO SCH ×2 (09:44→21:53)
--- NOTE | 2017-08-21 09:55 | PN ---
DATE OF SERVICE: 08/18/17 SUBJECTIVE: The patient was seen and examined today. PHYSICAL EXAMINATION: HEENT: Head normocephalic, atraumatic. Eyes: Extraocular muscles are intact. Pupils are equal, round and reactive to light and accommodation. Ears: No lesions. Nose appeared normal. Throat: No exudate or erythema. NECK: Supple. No JVD, no carotid bruit. No lymphadenopathy or thyromegaly. LUNGS: Decreased breath sounds but clear to auscultation. Percussion note normal. Chest symmetrical. HEART: S1, S2, tachyarrhythmias - is feeling fine. No cyanosis or clubbing. No ascites. Pulses: Dorsalis pedis and posterior tibial pulses +1 to +2 both sides. ABDOMEN: Soft. Nontender. Bowel sounds active. No CVA tenderness. No mass felt. EXTREMITIES: No edema. Full range of motion of all extremities, equal. NEUROLOGIC: No focal deficit. Cranial nerves II through XII are grossly intact. No headache, no double vision or headache. SKIN: Not dry. Intact. Turgor - normal. LYMPHATIC: No palpable lymph nodes/no lymphedema. MUSCULOSKELETAL: Normal joints with no swelling. Muscle tone is normal. Tachyarrhythmias, is feeling fine. She has no symptoms of CHF or CAD. Her appetite is good. Her physical therapy is progressing well. The patient is in atrial flutter with rate of 110 for the past two to three days. The patient has been given extra doses of Lanoxin and Metoprolol, practically no effect seen. Her Lanoxin level is less than 1, give 0.25 of Lanoxin and discontinue Metoprolol/Lopressor. Will put her on Betapace 40 mg twice a day and make changes. Changes explained to the [id number] who is a nurse and also to the patient. TIME SPENT: More than 30 minutes. Plan and coordination of the patient's care discussed in the presence of nurse. JOSE
--- NOTE | 2017-08-21 09:58 | PN ---
DATE OF SERVICE: 08/19/17 SUBJECTIVE: 76-year-old white female was in the swing bed. The patient's arrhythmia still persists but she has some slowing with Betapace 40 mg twice a day along with Lanoxin today at approximately 3 p.m. Her rhythm showed a rate of 70 to 80 per minute on 40 mg Betapace with intermittent Lanoxin. The patient's Lanoxin level in the morning was 1.32. The patient's cardiovascular status is stable. She is doing very well with her physical therapy. She is progressing well and is off Lopressor. CONDITION: Stable. TIME SPENT: More than 30 minutes. Plan and coordination of the patient's care discussed in the presence of nurse. JOSE
--- NOTE | 2017-08-21 10:31 | PN ---
DATE OF SERVICE: 08/20/17 SUBJECTIVE: The Amiodarone and morning dose of Betapace was held because of bradyarrhythmias. The patient had pauses of 2.2 seconds, a couple at night with bradycardia. The patient is in sinus rhythm now. The patient again is symptomatic. She is up and about, doing well with Physical Therapy. Her vitals are stable. Hemoglobin 10, hematocrit 31, WBC 9,000, normal differential. Creatinine 0.6, BUN 13, potassium 4.3. CONDITION: Stable. TIME SPENT: More than 30 minutes. Plan and coordination of the patient's care discussed in the presence of nurse. JOSE
[2017-08-21] MEDS: LIPITOR PO SCH (21:53)
[2017-08-21] MEDS: ZOLOFT PO SCH (21:55)
[2017-08-22] MEDS: PEPCID PO SCH (05:53)
[2017-08-22] MEDS: CLEOCIN PO SCH ×3 (05:53→21:20)
[2017-08-22] MEDS: LASIX TAB PO SCH (05:53)
[2017-08-22] MEDS: BACTROBAN TP SCH ×2 (09:22→21:21)
[2017-08-22] MEDS: ZYRTEC PO SCH (09:23)
[2017-08-22] MEDS: CALCIUM 500 + VIT D 200 MG TABLET PO SCH ×2 (09:23→21:20)
[2017-08-22] MEDS: LOPRESSOR PO SCH ×2 (09:23→21:16)
[2017-08-22] MEDS: FLORASTOR PO SCH ×2 (09:25→21:16)
[2017-08-22] MEDS: NYSTOP POWDER TP SCH ×2 (09:25→21:22)
[2017-08-22] MEDS: CORDARONE PO SCH (09:25)
[2017-08-22] MEDS: MUCINEX PO SCH ×2 (09:25→21:17)
[2017-08-22] MEDS: PRADAXA PO SCH ×2 (09:27→21:12)
--- NOTE | 2017-08-22 09:35 | PCM.PROG ---
Attending Provider: ATTENDING PROVIDER: Dr. TROY FULLER This patient is seen with Selin Estevez, Nurse Practitioner. DATE OF SERVICE: 08/22/17 SUBJECTIVE: This 76 year old WHITE/ F was hospitalized 08/13/17. The patient is sitting in chair, alert. Redness on left arm slightly improved. Heart rate controlled. REVIEW OF SYSTEMS: CONSTITUTIONAL: Weakness. No night sweats. No malaise, lethargy. No fever or chills. HEENT: Eyes: No visual changes. No eye pain. No eye discharge. ENT: No runny nose. No epistaxis. No sinus pain. No odynophagia. No congestion. RESPIRATORY: No cough, no congestion. No hemoptysis. No shortness of breath. CARDIOVASCULAR: No angina symptoms. No CHF symptoms. No atypical chest pain for CAD. No palpitations. No orthopnea.. GASTROINTESTINAL: No abdominal pain. No nausea or vomiting. No diarrhea or constipation. No hematemesis. No hematochezia. GENITOURINARY: No urgency. No frequency. No dysuria. No hematuria. No obstructive symptoms. No discharge. No pain. No significant abnormal bleeding. MUSCULOSKELETAL: No musculoskeletal pain; no joint swelling. NEUROLOGICAL: Awake, alert, oriented to time, place and person. No headache. No neck pain. No syncope. No seizures. No dizziness. PSYCHIATRIC: Not anxious. No depression. No suicidal thoughts. No homicidal thoughts. SKIN: Redness of left wrist. ENDOCRINE: No unexplained weight loss. No weight gain. HEMATOLOGIC/LYMPHATIC: No anemia. No purpura. No petechiae. No prolonged or excessive bleeding. No palpable lymph nodes. PHYSICAL EXAMINATION: GENERAL: The patient is awake, alert and oriented, sitting in chair in no distress. VITAL SIGNS: Temperature 97.9 F, Pulse 55, Respiratory Rate 20, BP 137/76, Pulse Ox 94% HEENT: Head normocephalic, atraumatic. Eyes: Extraocular muscles are intact. Pupils are equal, round and reactive to light and accommodation. Ears: No lesions. Nose appeared normal. Throat: No exudate or erythema. NECK: Supple. No JVD, no carotid bruit. No lymphadenopathy or thyromegaly. LUNGS: Diminished breath sounds bilaterally. Clear to auscultation. Percussion note normal. Chest symmetrical. HEART: S1, S2, no S3. No murmurs. No cyanosis or clubbing. No ascites. Pulses: Dorsalis pedis and posterior tibial pulses +1 to +2 both sides. ABDOMEN: Soft. Non-tender. Bowel sounds active. No CVA tenderness. No mass felt. EXTREMITIES: 1 cm area of induration left wrist improving, redness and tenderness, no drainage. No edema. Full range of motion of all extremities, equal. NEUROLOGIC: No focal deficit. Cranial nerves II through XII are grossly intact. No headache, no double vision or headache. SKIN: Warm and dry. Intact. Turgor-normal. LYMPHATIC: No palpable lymph nodes/no lymphedema. MUSCULOSKELETAL: Normal joints with no swelling. Muscle tone is normal. LAB REVIEW: 08/21/17 05:05 08/21/17 05:05 ASSESSMENT: 1. Possible cellulitis left wrist, seems to be improving 2. Generalized weakness 3. History of atrial fib/flutter with RVR 4. Recent E. coli urosepsis 5. Anxiety 6. Depression 7. Hypertension PLAN: 1. Continue Bactroban and Clindamycin 2. Decrease Xanax 0.125 mg b.i.d. 3. CBC and CMP today Plan and coordination of the patient's care discussed in the presence of Petroleum Engineering Professor and nurse. CONDITION: Stable SCRIBED BY: Vanessa MENON scribed while in presence of service performed by Dr. Fuller/Selin Estevez APRN on 08/22/17 (0064)
[2017-08-22] MEDS ORDERED: XANAX PO SCH (09:37)
[2017-08-22] MEDS: XANAX PO SCH ×3 (09:43→21:19)
[2017-08-22] MEDS: K-DUR PO SCH ×3 (15:46→21:17)
[2017-08-22] MEDS: ZOLOFT PO SCH (21:18)
[2017-08-22] MEDS: LIPITOR PO SCH (21:20)
[2017-08-23] MEDS: LASIX TAB PO SCH (05:37)
[2017-08-23] MEDS: PEPCID PO SCH (05:37)
[2017-08-23] MEDS: CLEOCIN PO SCH ×3 (05:37→21:43)
[2017-08-23] MEDS: BACTROBAN TP SCH ×2 (08:03→21:37)
[2017-08-23] MEDS: NYSTOP POWDER TP SCH ×2 (08:03→21:45)
[2017-08-23] MEDS: LOPRESSOR PO SCH ×2 (08:04→21:44)
[2017-08-23] MEDS: CALCIUM 500 + VIT D 200 MG TABLET PO SCH ×2 (08:06→21:43)
[2017-08-23] MEDS: ZYRTEC PO SCH (08:06)
[2017-08-23] MEDS: MUCINEX PO SCH ×2 (08:06→21:44)
[2017-08-23] MEDS: FLORASTOR PO SCH ×2 (08:06→21:42)
[2017-08-23] MEDS: K-DUR PO SCH ×2 (08:06→16:41)
[2017-08-23] MEDS: CORDARONE PO SCH (08:06)
[2017-08-23] MEDS: PRADAXA PO SCH ×2 (08:07→21:46)
[2017-08-23] MEDS: XANAX PO SCH ×2 (08:19→21:38)
[2017-08-23] MEDS: ZOLOFT PO SCH (21:40)
[2017-08-23] MEDS: LIPITOR PO SCH (21:41)
[2017-08-24] MEDS: CLEOCIN PO SCH ×3 (04:31→20:42)
[2017-08-24] MEDS: LASIX TAB PO SCH (05:50)
[2017-08-24] MEDS: PEPCID PO SCH (05:50)
[2017-08-24] MEDS: FLORASTOR PO SCH ×2 (08:14→20:39)
[2017-08-24] MEDS: BACTROBAN TP SCH ×2 (08:14→20:33)
[2017-08-24] MEDS: NYSTOP POWDER TP SCH ×2 (08:14→20:35)
[2017-08-24] MEDS: CALCIUM 500 + VIT D 200 MG TABLET PO SCH ×2 (08:15→20:45)
[2017-08-24] MEDS: CORDARONE PO SCH (08:15)
[2017-08-24] MEDS: XANAX PO SCH ×2 (08:15→20:38)
[2017-08-24] MEDS: K-DUR PO SCH ×2 (08:15→16:52)
[2017-08-24] MEDS: MUCINEX PO SCH ×2 (08:15→20:39)
[2017-08-24] MEDS: LOPRESSOR PO SCH ×2 (08:15→20:43)
[2017-08-24] MEDS: ZYRTEC PO SCH (08:15)
[2017-08-24] MEDS: PRADAXA PO SCH ×2 (08:16→20:46)
[2017-08-24] MEDS: ZOLOFT PO SCH (20:40)
[2017-08-24] MEDS: LIPITOR PO SCH (20:42)
[2017-08-25] MEDS: CLEOCIN PO SCH ×3 (04:04→21:12)
[2017-08-25] MEDS: PEPCID PO SCH (05:42)
[2017-08-25] MEDS: LASIX TAB PO SCH (05:43)
--- NOTE | 2017-08-25 08:46 | PCM.PROG ---
Attending Provider: ATTENDING PROVIDER: Dr. TROY FULLER This patient is seen with Selin Estevez, Nurse Practitioner. DATE OF SERVICE: 08/25/17 SUBJECTIVE: This 76 year old WHITE/ F was hospitalized 08/13/17. The patient is sitting in chair, alert. She would like to go home today; however, liver enzymes are elevated significantly. Will do ultrasound of liver this a.m. REVIEW OF SYSTEMS: CONSTITUTIONAL: Improving weakness. No night sweats. No malaise, lethargy. No fever or chills. HEENT: Eyes: No visual changes. No eye pain. No eye discharge. ENT: No runny nose. No epistaxis. No sinus pain. No odynophagia. No congestion. RESPIRATORY: No cough, no congestion. No hemoptysis. No shortness of breath. CARDIOVASCULAR: No angina symptoms. No CHF symptoms. No atypical chest pain for CAD. No palpitations. No orthopnea.. GASTROINTESTINAL: No abdominal pain. No nausea or vomiting. No diarrhea or constipation. No hematemesis. No hematochezia. GENITOURINARY: No urgency. No frequency. No dysuria. No hematuria. No obstructive symptoms. No discharge. No pain. No significant abnormal bleeding. MUSCULOSKELETAL: No musculoskeletal pain; no joint swelling. NEUROLOGICAL: Awake, alert, oriented to time, place and person. No headache. No neck pain. No syncope. No seizures. No dizziness. PSYCHIATRIC: Not anxious. No depression. No suicidal thoughts. No homicidal thoughts. SKIN: Cellulitis left wrist, resolving. ENDOCRINE: No unexplained weight loss. No weight gain. HEMATOLOGIC/LYMPHATIC: No anemia. No purpura. No petechiae. No prolonged or excessive bleeding. No palpable lymph nodes. PHYSICAL EXAMINATION: GENERAL: The patient is awake, alert and oriented, sitting in chair in no distress. VITAL SIGNS: Temperature 97.5 F, Pulse 58, Respiratory Rate 18, BP 155/70, Pulse Ox 99% HEENT: Head normocephalic, atraumatic. Eyes: Extraocular muscles are intact. Pupils are equal, round and reactive to light and accommodation. Ears: No lesions. Nose appeared normal. Throat: No exudate or erythema. NECK: Supple. No JVD, no carotid bruit. No lymphadenopathy or thyromegaly. LUNGS: Clear to auscultation. Percussion note normal. Chest symmetrical. HEART: Regular rhythm and rate. S1, S2, no S3. No murmurs. No cyanosis or clubbing. No ascites. Pulses: Dorsalis pedis and posterior tibial pulses +1 to +2 both sides. ABDOMEN: Soft. Non-tender. Bowel sounds active. No CVA tenderness. No mass felt. EXTREMITIES: Trace bilateral edema. Cellulitis left wrist resolving. Full range of motion of all extremities, equal. NEUROLOGIC: No focal deficit. Cranial nerves II through XII are grossly intact. No headache, no double vision or headache. SKIN: Not dry. Intact. Turgor-normal. LYMPHATIC: No palpable lymph nodes/no lymphedema. MUSCULOSKELETAL: Normal joints with no swelling. Muscle tone is normal. LAB REVIEW: 08/25/17 04:05 08/25/17 04:05 08/25/17 04:05: Sodium 135 L, Potassium 5.1, Chloride 99, Carbon Dioxide 30, Anion Gap 11.1, BUN 12, Creatinine 0.66, Estimated GFR (MDRD) 87.00, BUN/ Creatinine Ratio 18.18, Glucose 96, Calcium 9.6, Total Bilirubin 0.7, AST 86 H, ALT 134 H, Alkaline Phosphatase 92, Total Protein 6.5, Albumin 2.6 L, Globulin 3.9, Albumin/Globulin Ratio 0.67 08/25/17 04:05: WBC 7.41, RBC 3.35 L, Hgb 9.7 L, Hct 30.6 L, MCV 91.3, MCH 29.0 , MCHC 31.7 L, RDW Coeff of Roya 14.2, Plt Count 303, Immature Gran % (Auto) 0.5 , Neut % (Auto) 47.9, Lymph % (Auto) 33.3, Cowley % (Auto) 13.2 H, Eos % (Auto) 4.7, Baso % (Auto) 0.4, Immature Gran # (Auto) 0.0, Neut # (Auto) 3.5, Lymph # ( Auto) 2.5, Cowley # (Auto) 1.0, Eos # (Auto) 0.4, Baso # (Auto) 0.0 ASSESSMENT: 1. Elevated liver function 2. Cellulitis left wrist, resolving 3. Generalized weakness 4. History of atrial fib/flutter with RVR, rate controlled 5. Recent E. coli urosepsis 6. Anxiety 7. Depression 8. Hypertension PLAN: 1. US of liver due to elevated liver enzymes 2. Hold Lipitor 3. CBC, CMP tomorrow Plan and coordination of the patient's care discussed in the presence of Law Office Manager and nurse. CONDITION: Stable SCRIBED BY: ROSITA PHILIPPE Citrus Picker scribed while in presence of service performed by Dr. Fuller/Selin Estevez APRN on 08/25/17 (0800)
--- NOTE | 2017-08-25 11:23 | PN ---
DATE OF SERVICE: 08/21/17 SUBJECTIVE: The patient was seen and examined today. PHYSICAL EXAMINATION: HEENT: Head normocephalic, atraumatic. Eyes: Extraocular muscles are intact. Pupils are equal, round and reactive to light and accommodation. Ears: No lesions. Nose appeared normal. Throat: No exudate or erythema. NECK: Supple. No JVD, no carotid bruit. No lymphadenopathy or thyromegaly. LUNGS: Clear to auscultation. Percussion note normal. Chest symmetrical. HEART: S1, S2, no S3. No murmurs. No cyanosis or clubbing. No ascites. Pulses: Dorsalis pedis and posterior tibial pulses +1 to +2 both sides. ABDOMEN: Soft. Nontender. Bowel sounds active. No CVA tenderness. No mass felt. EXTREMITIES: No edema. Full range of motion of all extremities, equal. NEUROLOGIC: No focal deficit. Cranial nerves II through XII are grossly intact. No headache, no double vision or headache. SKIN: Not dry. Intact. Turgor - normal. LYMPHATIC: No palpable lymph nodes/no lymphedema. MUSCULOSKELETAL: Normal joints with no swelling. Muscle tone is normal. LABS: Rhythm strips examined and patient's EKG sinus rhythm, bradycardia rate 55 per minute. PLAN: 1. The patient is going to be taken off Betapace and put on Lopressor or Metoprolol 12.5mg twice a day the same dose she was on before with Amiodarone. 2. If the patient flips back into the atrial flutter with rapid ventricular response and then we will use Betapace otherwise we will keep the patient with the same medication she came in with. 3. She is progressing well with physical therapy in swing bed program. Talked to [id number] and they are happy with the progress. CONDITION: Stable. TIME SPENT: More than 30 minutes. Plan and coordination of the patient's care discussed in the presence of nurse. JOSE
[2017-08-25] MEDS: NYSTOP POWDER TP SCH ×2 (11:33→21:12)
[2017-08-25] MEDS: BACTROBAN TP SCH ×2 (11:33→21:12)
[2017-08-25] MEDS: ZYRTEC PO SCH (11:34)
[2017-08-25] MEDS: FLORASTOR PO SCH ×2 (11:34→21:13)
[2017-08-25] MEDS: CALCIUM 500 + VIT D 200 MG TABLET PO SCH ×2 (11:35→21:13)
[2017-08-25] MEDS: CORDARONE PO SCH (11:35)
[2017-08-25] MEDS: MUCINEX PO SCH ×2 (11:35→21:13)
[2017-08-25] MEDS: PRADAXA PO SCH ×2 (11:36→21:18)
[2017-08-25] MEDS: LOPRESSOR PO SCH ×2 (11:36→21:14)
--- NOTE | 2017-08-25 11:40 | US ---
EXAM: Abdominal ultrasound limited HISTORY: Elevated ALT and aspartate aminotransferase COMPARISON: None TECHNIQUE: Sonographic and limited Doppler evaluation of the right upper quadrant was performed. Erica luation is limited due to bowel gas. FINDINGS: This evaluation is limited due to bowel gas. The liver is heterogeneous in echogenicity a nd measures 14.2 cm. The portal vein is patent. Color Doppler flow and wave spectral analysis is nor mal. The gallbladder is not visualized due to extensive bowel gas. Common bile duct is unremarkable and measures 0.5 cm in diameter. The pancreas is unremarkable in appearance. The right kidney measu res 8.3 x 4.1 x 2.8 centimeters with cortical thickness of 1 cm. There is no sonographic abnormality of the kidney. IMPRESSION: 1. No acute abnormality on this evaluation limited due to extensive bowel gas. 2. Heterogeneous appearance of the liver may represent a hepato parenchymal process with no focal he patic lesion.
[2017-08-25] MEDS: XANAX PO SCH ×2 (12:42→21:13)
--- NOTE | 2017-08-25 13:46 | PN ---
DATE OF SERVICE: 08/22/17 SUBJECTIVE: The patient was seen and examined with Nurse Practitioner. The patient doesn't have any complaints. She is feeling a lot better. REVIEW OF SYSTEMS: CONSTITUTIONAL: No night sweats. No fatigue, malaise, lethargy. No fever or chills. HEENT: Eyes: No visual changes. No eye pain. No eye discharge. ENT: No runny nose. No epistaxis. No sinus pain. No sore throat. No odynophagia. No congestion. RESPIRATORY: No cough, no congestion. No hemoptysis. No shortness of breath. CARDIOVASCULAR: No angina symptoms. No CHF symptoms. No atypical chest pain for CAD. No palpitations. No orthopnea. GASTROINTESTINAL: No abdominal pain. No nausea or vomiting. No diarrhea or constipation. No hematemesis. No hematochezia. GENITOURINARY: No urgency. No frequency. No dysuria. No hematuria. No obstructive symptoms. No discharge. No pain. No significant abnormal bleeding. MUSCULOSKELETAL: No musculoskeletal pain; no joint swelling. NEUROLOGICAL: No headache. No neck pain. No syncope. No seizures. No dizziness. PSYCHIATRIC: Not anxious. No depression. No suicidal thoughts. No homicidal thoughts. SKIN: No rash. No lesions. No wounds. ENDOCRINE: No unexplained weight loss. No weight gain. HEMATOLOGIC/LYMPHATIC: No anemia. No purpura. No petechiae. No prolonged or excessive bleeding. No palpable lymph nodes. PHYSICAL EXAMINATION: GENERAL: The patient is oriented to time, place and person. HEENT: Head normocephalic, atraumatic. Eyes: Extraocular muscles are intact. Pupils are equal, round and reactive to light and accommodation. Ears: No lesions. Nose appeared normal. Throat: No exudate or erythema. NECK: Supple. No JVD, no carotid bruit. No lymphadenopathy or thyromegaly. LUNGS: Clear to auscultation. Percussion note normal. Chest symmetrical. HEART: S1, S2, no S3. No murmurs. No cyanosis or clubbing. No ascites. Pulses: Dorsalis pedis and posterior tibial pulses +1 to +2 both sides. Rhythm is regular. ABDOMEN: Soft. Nontender. Bowel sounds active. No CVA tenderness. No mass felt. EXTREMITIES: No edema. Full range of motion of all extremities, equal. NEUROLOGIC: No focal deficit. Cranial nerves II through XII are grossly intact. No headache, no double vision or headache. SKIN: Not dry. Intact. Turgor - normal. LYMPHATIC: No palpable lymph nodes/no lymphedema. MUSCULOSKELETAL: Normal joints with no swelling. Muscle tone is normal. LABS: Telemetry stripes are examined and the patient is in sinus rhythm with rate of 55 per minute. PLAN: 1. The patient is on Lopressor and Amiodarone once a day 2. The patient is progressing well with physical therapy. CONDITION: stable. TIME SPENT: More than 30 minutes. Plan and coordination of the patient's care discussed in the presence of nurse. JOSE
[2017-08-25] MEDS: ZOLOFT PO SCH (21:15)
[2017-08-26 05:45] VITALS: BP 151/71; TEMP 97.5
[2017-08-26] MEDS: CLEOCIN PO SCH ×2 (05:57→13:36)
[2017-08-26] MEDS: LASIX TAB PO SCH (05:57)
[2017-08-26] MEDS: PEPCID PO SCH (05:57)
[2017-08-26] MEDS: MUCINEX PO SCH (09:45)
[2017-08-26] MEDS: CORDARONE PO SCH (09:46)
[2017-08-26] MEDS: FLORASTOR PO SCH (09:46)
[2017-08-26] MEDS: ZYRTEC PO SCH (09:46)
[2017-08-26] MEDS: CALCIUM 500 + VIT D 200 MG TABLET PO SCH (09:46)
[2017-08-26] MEDS: LOPRESSOR PO SCH (09:47)
[2017-08-26] MEDS: PRADAXA PO SCH (09:50)
[2017-08-26] MEDS: BACTROBAN TP SCH (09:51)
[2017-08-26] MEDS: NYSTOP POWDER TP SCH (09:51)
[2017-08-26] MEDS: XANAX PO SCH (09:52)
--- NOTE | 2017-08-26 10:24 | PCM.PROG ---
Attending Provider: ATTENDING PROVIDER: Dr. TROY PRICE This patient is seen with Selin Estevez, Nurse Practitioner. DATE OF SERVICE: 08/26/17 SUBJECTIVE: This 76 year old WHITE/ F was hospitalized 08/13/17. The patient is sitting in chair, alert. She has done very well with PT. Liver ultrasound was normal. Liver enzymes trending downward. Will continue to hold Lipitor. The plan is to move up appointment with PMD Dr. Fortune in order to check liver enzymes. Will hold Lipitor until then. The patient has agreed for Home Health through [facility] for further care. REVIEW OF SYSTEMS: CONSTITUTIONAL: Weakness is improving. No night sweats. No malaise, lethargy. No fever or chills. HEENT: Eyes: No visual changes. No eye pain. No eye discharge. ENT: No runny nose. No epistaxis. No sinus pain. No odynophagia. No congestion. RESPIRATORY: No cough, no congestion. No hemoptysis. No shortness of breath. CARDIOVASCULAR: No angina symptoms. No CHF symptoms. No atypical chest pain for CAD. No palpitations. No orthopnea.. GASTROINTESTINAL: No abdominal pain. No nausea or vomiting. No diarrhea or constipation. No hematemesis. No hematochezia. GENITOURINARY: No urgency. No frequency. No dysuria. No hematuria. No obstructive symptoms. No discharge. No pain. No significant abnormal bleeding. MUSCULOSKELETAL: No musculoskeletal pain; no joint swelling. NEUROLOGICAL: Awake, alert, oriented to time, place and person. No headache. No neck pain. No syncope. No seizures. No dizziness. PSYCHIATRIC: Not anxious. No depression. No suicidal thoughts. No homicidal thoughts. SKIN: Resolving abscess left wrist. No rash. ENDOCRINE: No unexplained weight loss. No weight gain. HEMATOLOGIC/LYMPHATIC: No anemia. No purpura. No petechiae. No prolonged or excessive bleeding. No palpable lymph nodes. PHYSICAL EXAMINATION: GENERAL: The patient is awake, alert and oriented, sitting in chair in no distress. VITAL SIGNS: Temperature 97.5 F, Pulse 73, Respiratory Rate 16, BP 151/71, Pulse Ox 90% HEENT: Head normocephalic, atraumatic. Eyes: Extraocular muscles are intact. Pupils are equal, round and reactive to light and accommodation. Ears: No lesions. Nose appeared normal. Throat: No exudate or erythema. NECK: Supple. No JVD, no carotid bruit. No lymphadenopathy or thyromegaly. LUNGS: Diminished breath sounds. Clear to auscultation. Percussion note normal. Chest symmetrical. HEART: S1, S2, no S3. No murmurs. No cyanosis or clubbing. No ascites. Pulses: Dorsalis pedis and posterior tibial pulses +1 to +2 both sides. ABDOMEN: Soft. Non-tender. Bowel sounds active. No CVA tenderness. No mass felt. EXTREMITIES: Trace bilateral edema. Full range of motion of all extremities, equal. NEUROLOGIC: No focal deficit. Cranial nerves II through XII are grossly intact. No headache, no double vision or headache. SKIN: Not dry. Intact. Turgor-normal. LYMPHATIC: No palpable lymph nodes/no lymphedema. MUSCULOSKELETAL: Normal joints with no swelling. Muscle tone is normal. LAB REVIEW: 08/26/17 04:30 08/26/17 04:30 08/26/17 04:30: Sodium 134 L, Potassium 4.7, Chloride 97 L, Carbon Dioxide 31, Anion Gap 10.7, BUN 14, Creatinine 0.74, Estimated GFR (MDRD) 77.00, BUN/ Creatinine Ratio 18.91, Glucose 84, Calcium 9.5, Total Bilirubin 0.7, AST 46 H D , ALT 109 H, Alkaline Phosphatase 87, Total Protein 6.3, Albumin 2.6 L, Globulin 3.7, Albumin/Globulin Ratio 0.70 08/26/17 04:30: WBC 7.20, RBC 3.37 L, Hgb 9.7 L, Hct 30.9 L, MCV 91.7, MCH 28.8 , MCHC 31.4 L, RDW Coeff of Roya 14.1, Plt Count 305, Immature Gran % (Auto) 0.7 , Neut % (Auto) 37.9, Lymph % (Auto) 44.0, Dunn % (Auto) 11.8 H, Eos % (Auto) 4.9, Baso % (Auto) 0.7, Immature Gran # (Auto) 0.1, Neut # (Auto) 2.7, Lymph # ( Auto) 3.2, Dunn # (Auto) 0.9, Eos # (Auto) 0.4, Baso # (Auto) 0.1 ASSESSMENT: 1. Elevated liver function, improving 2. Cellulitis left wrist, resolving 3. Generalized weakness 4. History of atrial fib/flutter with RVR, rate controlled 5. Recent E. coli urosepsis 6. Anxiety 7. Depression 8. Hypertension PLAN: 1. D/C home. 2. Will hold Lipitor until patient sees PMD, Dr. Fortune. 3. Continue Clindamycin p.o. b.i.d. for four more days. 4. [facility] for nursing assessment, vital signs, and nutrition. 5. Appointment with [facility] 08/29/17. Plan and coordination of the patient's care discussed in the presence of Glass Setter and nurse. CONDITION: Stable SCRIBED BY: Vanessa MENON scribed while in presence of service performed by Dr. Price/Selin Estevez APRN on 08/26/17 (8325)
--- NOTE | 2017-08-26 12:37 | CM.DICTOOL ---
ADMISSION: 08/13/17 10:23 DISCHARGE: August 26, 2017 FROM TRANSITIONAL CARE DATE OF SERVICE: 08/26/17 FINAL DIAGNOSIS ATRIAL FIB/FLUTTER ATRIAL FIB WITH RVR HISTORY OF CARDIOVERSION 07/29 AT [facility] DECLINE IN FUNCTIONAL MOBILITY R/T MULTIPLE MEDICAL/PROLONGED HOSPITALIZATION CELLULITIS, LEFT WRIST, IMPROVING BRADYARRYTHMIA, RESOLVED ELEVATED LFT'S RECENT HEALTH CARE ACQUIRED PNEUMONIA (ABX THERAPY COMPLETED) RECENT E-COLI UTI WITH SEPSIS (COMPLETED ABX THERAPY) CHRONIC DIASTOLIC CHF HYPERTENSION CONTACT DERMATITIS, RESOLVED DEPRESSION ANXIETY NORMOCYTIC ANEMIA WITH IRON DEFICIENCY DYSLIPIDEMIA LAST VITALS Temp Pulse Resp BP Pulse Ox 97.5 F L 73 16 151/71 H 90 L 08/26/17 05:43 08/26/17 05:43 08/26/17 05:43 08/26/17 05:43 08/26/17 05:43 TAKE THESE MEDICATIONS AT HOME Alendronate Sodium (Fosamax) 70 mg PO Q7D [facility] Last Admin: 08/21/17 05:34 Dose: 70 mg Amiodarone HCl (Cordarone) 200 mg PO DAILY [facility] Last Admin: 08/26/17 09:46 Dose: 200 mg Calcium/Vitamin D (Calcium 500 + Vit D 200 Mg Tablet) 1 each PO BID [facility] Last Admin: 08/26/17 09:46 Dose: 1 each Cetirizine HCl (Zyrtec) 10 mg PO DAILY [facility] Last Admin: 08/26/17 09:46 Dose: 10 mg Clindamycin HCl (Cleocin) 300 mg PO BID [facility] Last Admin: 08/26/17 05:57 Dose: 300 mg Dabigatran (Pradaxa) 150 mg PO Q12HR [facility] Last Admin: 08/26/17 09:50 Dose: 150 mg Famotidine (Pepcid) 20 mg PO QDAC [facility] Last Admin: 08/26/17 05:57 Dose: 20 mg Furosemide (Lasix Tab) 20 mg PO QDAC [facility] Last Admin: 08/26/17 05:57 Dose: 20 mg Metoprolol Tartrate (Lopressor) 12.5 mg PO BID [facility] Last Admin: 08/26/17 09:47 Dose: 12.5 mg Mupirocin (Bactroban) 1 applic TP BID [facility] Last Admin: 08/26/17 09:51 Dose: 1 applic Saccharomyces Boulardii (Florastor) 250 mg PO BID [facility] Last Admin: 08/26/17 09:46 Dose: 250 mg Sertraline HCl (Zoloft) 75 mg PO BEDTIME [facility] Last Admin: 08/25/17 21:15 Dose: 75 mg Buspirone HCL (Buspar) 7.5 mg BID prn Last Admin: K-tab 10 meq Daily Last Admin: ALLERGIES Penicillins Adverse Reaction (Intermediate, Verified 08/07/17 20:05) Hives DISCONTINUED MEDICATIONS Amlodipine Lisinopril Mucinex Lipitor (until sees Dr. Fortune) NEW PRESCRIPTIONS: K-tab 10 meq daily Clindamycin 300 mg BID for 4 days Amiodarone 200 mg daily Lopressor 12.5 mg BID SMOKING: Not Applicable DISEASE SPECIFIC EDUCATION: Medications Activity Appointments LAB REVIEW: 08/26/17 04:30 08/26/17 04:30 08/26/17 04:30: Sodium 134 L, Potassium 4.7, Chloride 97 L, Carbon Dioxide 31, Anion Gap 10.7, BUN 14, Creatinine 0.74, Estimated GFR (MDRD) 77.00, BUN/ Creatinine Ratio 18.91, Glucose 84, Calcium 9.5, Total Bilirubin 0.7, AST 46 H D , ALT 109 H, Alkaline Phosphatase 87, Total Protein 6.3, Albumin 2.6 L, Globulin 3.7, Albumin/Globulin Ratio 0.70 08/26/17 04:30: WBC 7.20, RBC 3.37 L, Hgb 9.7 L, Hct 30.9 L, MCV 91.7, MCH 28.8 , MCHC 31.4 L, RDW Coeff of Roya 14.1, Plt Count 305, Immature Gran % (Auto) 0.7 , Neut % (Auto) 37.9, Lymph % (Auto) 44.0, Ellsworth % (Auto) 11.8 H, Eos % (Auto) 4.9, Baso % (Auto) 0.7, Immature Gran # (Auto) 0.1, Neut # (Auto) 2.7, Lymph # ( Auto) 3.2, Ellsworth # (Auto) 0.9, Eos # (Auto) 0.4, Baso # (Auto) 0.1 PLAN: Discharge home Diet: Heart Healthy Activity: Gradually Resume as tolerated. Continue to use your walker when walking in your home. Walk several times a day. Continue medications as listed on nursing discharge information sheet [facility] will resume home health care for nursing assessment; including medications, vital signs, nutrition. A Physical Therapy evaluation will be requested for continuation of therapy in the home. An appointment is scheduled with [facility] in [place], [place] on August 29 at 3:30 PM An appointment is scheduled with Dr. Fortune on September 05 at 1:30 PM in [place], [place] Code status: Full Code Ms. Blakely is alert and oriented x 3. 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 She transfers by self and utilizes a rolling walker with stand by assistance of nursing staff when walking in the hallway. She is ambulatory at distances of 100-200 feet. Skin is intact, but an area of resolving cellulitis is noted to the left wrist. A small scabbed area with slightly pink scan is noted to the left wrist. No drainage is noted. No decubitus ulcers noted. the rash noted to the chest and back has resolved. Nutritional intake is good at 50-100% of meals. She will be followed by [facility] and her personal physician, Dr. Fortune per her request. Chuy Price MD Selin Estevez APRN
--- NOTE | 2017-08-26 12:42 | PN ---
DATE OF SERVICE: 08/24/17 SUBJECTIVE: 76 year old white female hospitalized for physical therapy. The patient is progressing very well with physical therapy. Her cardiovascular status was a problem and that is why she ended up in the [facility] twice within past one month when she was once transferred to [facility] after she was admitted here in the swing bed. The patient has arrhythmias with atrial flutter with rapid ventricular response. The patient last three days has been sinus rhythm with rate of 55 per minute. She has been on Lopressor 12.5 twice a day along with Amiodarone once a day. Her cardiovascular status is stable with no evidence of CHF or coronary insufficiency. REVIEW OF SYSTEMS: CONSTITUTIONAL: No night sweats. No fatigue, malaise, lethargy. No fever or chills. Weakness which seems to be better with less ataxia. HEENT: Eyes: No visual changes. No eye pain. No eye discharge. ENT: No runny nose. No epistaxis. No sinus pain. No sore throat. No odynophagia. No congestion. RESPIRATORY: No cough, no congestion. No hemoptysis. No shortness of breath. CARDIOVASCULAR: No angina symptoms. No CHF symptoms. No atypical chest pain for CAD. No palpitations. No orthopnea. GASTROINTESTINAL: No abdominal pain. No nausea or vomiting. No diarrhea or constipation. No hematemesis. No hematochezia. GENITOURINARY: No urgency. No frequency. No dysuria. No hematuria. No obstructive symptoms. No discharge. No pain. No significant abnormal bleeding. MUSCULOSKELETAL: No musculoskeletal pain; no joint swelling. NEUROLOGICAL: No headache. No neck pain. No syncope. No seizures. No dizziness. PSYCHIATRIC: Not anxious. No depression. No suicidal thoughts. No homicidal thoughts. SKIN: No rash. No lesions. No wounds. ENDOCRINE: No unexplained weight loss. No weight gain. HEMATOLOGIC/LYMPHATIC: No anemia. No purpura. No petechiae. No prolonged or excessive bleeding. No palpable lymph nodes. PHYSICAL EXAMINATION: HEENT: Head normocephalic, atraumatic. Eyes: Extraocular muscles are intact. Pupils are equal, round and reactive to light and accommodation. Ears: No lesions. Nose appeared normal. Throat: No exudate or erythema. NECK: Supple. No JVP, no carotid bruit. No lymphadenopathy or thyromegaly. LUNGS: Clear to auscultation. Percussion note normal. Chest symmetrical. HEART: S1, S2, no S3. No murmurs. No cyanosis or clubbing. No ascites. Pulses: Dorsalis pedis and posterior tibial pulses +1 to +2 both sides. ABDOMEN: Soft. Nontender. Bowel sounds active. No CVA tenderness. No mass felt. EXTREMITIES: No edema. Full range of motion of all extremities, equal. NEUROLOGIC: No focal deficit. Cranial nerves II through XII are grossly intact. No headache, no double vision or headache. SKIN: Not dry. Intact. Turgor - normal. LYMPHATIC: No palpable lymph nodes/no lymphedema. MUSCULOSKELETAL: Normal joints with no swelling. Muscle tone is normal. PLAN: 1. The patient's over physical status has improved. She is responding to physical therapy. Swing bed has really helped her. 2. She has for past 2-3 days no cardiac arrhythmias of any significance. She has been given Lopressor 12.5mg twice a day along with Amiodarone. CONDITION: Stable. TIME SPENT: More than 30 minutes. Plan and coordination of the patient's care discussed in the presence of nurse. JOSE
--- NOTE | 2017-08-29 09:25 | PN ---
DATE OF SERVICE: 08/26/17 SUBJECTIVE: The patient was seen and examined with the Nurse Practitioner. The patient stayed in the hospital and was in atrial flutter with rate of 110 to 120 per minute. The patient was given Betapace and later Amiodarone was decreased to one a day. The patient converted to sinus rhythm and she was taken off Betapace and put on Metoprolol 12.5 twice a day as before along with Amiodarone. The patient has stayed in sinus rhythm throughout. She was discharged in stable condition. She is Clindamycin for infected IV site which has resolved. During the stay in the hospital the patient really felt good. She was up and about. She is to be followup by her primary care physician Dr. Fortune and a Battalion Fire Chief is supposed to see her in 3-4 days. CONDITION: Stable. TIME SPENT: More than 30 minutes. Plan and coordination of the patient's care discussed in the presence of nurse. JOSE
--- NOTE | 2017-08-29 09:28 | PN ---
DATE OF SERVICE: 08/25/17 SUBJECTIVE: The patient was seen and examined with the Nurse Practitioner. The patient's condition is improving and she has been staying in sinus rhythm for past 4-5 days on Lopressor and Amiodarone. She is up and about with very successful swing stay. The patient's other problem is abnormal liver profile. We will discontinue statin and recheck her liver profile tomorrow. Ultrasound of the liver has been ordered. PHYSICAL EXAMINATION: HEENT: Head normocephalic, atraumatic. Eyes: Extraocular muscles are intact. Pupils are equal, round and reactive to light and accommodation. Ears: No lesions. Nose appeared normal. Throat: No exudate or erythema. NECK: Supple. No JVD, no carotid bruit. No lymphadenopathy or thyromegaly. LUNGS: Clear to auscultation. Percussion note normal. Chest symmetrical. HEART: S1, S2, no S3. No murmurs. No cyanosis or clubbing. No ascites. Pulses: Dorsalis pedis and posterior tibial pulses +1 to +2 both sides. ABDOMEN: Soft. Nontender. Bowel sounds active. No CVA tenderness. No mass felt. EXTREMITIES: No edema. Full range of motion of all extremities, equal. NEUROLOGIC: No focal deficit. Cranial nerves II through XII are grossly intact. No headache, no double vision or headache. SKIN: Not dry. Intact. Turgor - normal. LYMPHATIC: No palpable lymph nodes/no lymphedema. MUSCULOSKELETAL: Normal joints with no swelling. Muscle tone is normal. OVER ALL CONDITION: Stable TIME SPENT: More than 30 minutes. Plan and coordination of the patient's care discussed in the presence of nurse. JOSE
--- NOTE | 2017-09-04 15:51 | DS ---
DATE OF SERVICE: 08/26/17 FINAL DIAGNOSIS: 1. Atrial fibrillation/flutter 2. Atrial fibrillation with RVR 3. History of cardioversion 07/29 at [facility] 4. Decline in functional mobility R/T multiple medical/Prolonged hospitalization 5. Cellulitis, left wrist, improving 6. Bradyarrhythmia, resolved 7. Elevated LFT's 8. Recent Health care acquired pneumonia (ABX therapy completed) 9. Recent e-coli UTI with sepsis (completed ABX therapy) 10.Chronic diastolic CHF 11.Hypertension 12.Contact dermatitis, resolved 13.Depression 14.Anxiety 15.Normocytic anemia with iron deficiency 16.Dyslipidemia LAST VITALS: Temperature 97.5, pulse 73, respiratory rate 16, blood pressure 151/71 and pulse ox 90%. DISCHARGE INSTRUCTIONS: Discharge home. Continue medications as listed on nursing discharge information sheet. [facility] will resume home health care for nursing assessment; including medications, vital signs, nutrition. A physical therapy evaluation will be requested for continuation of therapy in the home. An appointment is scheduled with [facility] in [place], [place] on August 29 at 3:30pm. An appointment is scheduled with Dr. Fortune on September 05 at 1:30pm in [place], [place]. Code status: Full Code. MEDICATIONS AT DISCHARGE: Fosamax 70mg PO Q 7 day Cordarone 200mg Po daily Calcium/Vitamin D 1 each PO twice a day Zyrtec 10mg PO daily Cleocin 300mg PO twice a day Pradaxa 150mg PO Q 12 hour Pepcid 20mg PO QDAC Lasix 20mg PO QDAC Lopressor 12.5mg PO twice a day Bactroban 1 application TP twice a day Florastor 250mg PO twice a day Zoloft 75mg PO bedtime Buspar 7.5mg PO twice a day PRN K-Tab 10meq daily ALLERGIES: Penicillins DISCONTINUED MEDICATIONS: Amlodipine Lisinopril Mucinex Lipitor (until sees Dr. Fortune) NEW PRESCRIPTIONS: K-tab 10meq daily Clindamycin 300mg twice a day for 4 days Amiodarone 200mg daily Lopressor 12.5mg PO twice a day DIET INSTRUCTIONS: Heart healthy ACTIVITY: Gradually resume as tolerated. Continue to use your walker when walking in your home. Walk several times a day. SMOKING: N/A DISEASE SPECIFIC EDUCATION: Medications Activity Appointments HOSPITAL COURSE: This is a 76 year old white female who was recently admitted to swing bed but then transferred to [facility] for Cardiology consult due to uncontrol atrial flutter with RVR. She was sent back her for swing bed placement after she had also prior to that had urosepsis with e-coli and was here for PT/OT. She underwent PT/OT while staying here and did remarkably well. She has made significant improvements and made all of her goals. She had borderline anemia which has been stable. She did have initially some episodes of atrial flutter with RVR with heart rate max 115. We changed her medications around somewhat and she will be discharged home on Lopressor 12.5 along with Amiodarone 200mg daily. She is already anticoagulated with Pradaxa 150mg twice a day. For the three days her heart rate has been controlled in the 50's and 60' s. She has been doing well. Her liver enzymes became elevated over the weekend with the highest of AST 87 and ALT 134. Today this is down significantly with an AST in the 40's and ALT down to 104. They were normal on admission at lows at 22. We held her Lipitor yesterday and did an ultrasound of her liver which was normal. Again they are trending downward. She has been instructed to hold her Lipitor until she sees Dr. Fortune next week. Overall she has had a remarkable stay. She also developed an abscess likely from the previous IV stick on her left wrist, it was cultured as it did have some purulent drainage which was positive for Staph. We placed her on Clindamycin 300mg orally PO three times a day for which she responded well and applied Bactroban. There is no more redness and the area seems to be resolving. We will discharge her home on 300mg twice a day Clindamycin for the next four days to complete a 10 day course. She has improved remarkably well and she is going to followup with Dr. Fortune on the . She has an appointment with [facility] on the of this Month and she is discharged in stable condition. TIME SPENT: More than 60 minutes. JOSE
== END 2017-08-26 14:10 | disposition home or self-care (01) | DRG 947 ==
LOC: MEDSURG A 10:23
PROVIDERS: ADMIT Internal Medicine; ATTEND Internal Medicine
DX: R53.1 Weakness (principal); J18.9 Pneumonia, unspecified organism; A41.51 Sepsis due to Escherichia coli [E. coli]; L03.114 Cellulitis of left upper limb; N39.0 Urinary tract infection, site not specified; I50.32 Chronic diastolic (congestive) heart failure; B95.8 Unspecified staphylococcus as the cause of diseases classified elsewhere; B96.20 Unspecified Escherichia coli [E. coli] as the cause of diseases classified elsewhere; D64.9 Anemia, unspecified; E61.1 Iron deficiency; E78.5 Hyperlipidemia, unspecified; R73.9 Hyperglycemia, unspecified; I51.7 Cardiomegaly; I48.91 Unspecified atrial fibrillation; I10 Essential (primary) hypertension; L25.9 Unspecified contact dermatitis, unspecified cause; F41.8 Other specified anxiety disorders; R94.5 Abnormal results of liver function studies; Y95 Nosocomial condition
CPT/HCPCS: 36415; 80053; 80162; 84443; 85025; 87070; 87081; 87186; 93005; 93010; 97802

== ENCOUNTER 2017-12-10 10:40 | Outpatient (CLI) | payer OTHER | END 2017-12-10 10:41 | disposition home or self-care (01) | LOC: LAB 10:40 | PROVIDERS: ATTEND Nurse Practitioner Family | DX: I50.32 Chronic diastolic (congestive) heart failure (principal) | CPT/HCPCS: 36415; 80048 ==

== ENCOUNTER 2018-02-27 09:15 | Outpatient (RCR) | END 2018-03-02 23:59 | PROVIDERS: ATTEND Internal Medicine | DX: R29.6 Repeated falls (principal); R26.81 Unsteadiness on feet ==

== ENCOUNTER 2018-03-30 12:45 | Outpatient (CLI) | END 2018-03-30 12:46 | disposition home or self-care (01) | LOC: LAB 12:45 | PROVIDERS: ATTEND Nurse Practitioner Family | DX: I50.32 Chronic diastolic (congestive) heart failure (principal) | CPT/HCPCS: 36415; 80048 ==

== ENCOUNTER 2018-05-29 13:00 | Outpatient (RCR) ==
--- NOTE | 2018-05-07 08:48 | RS.OPPTEV2 ---
Date of Note: 05/06/18 Visit #: 1 Number of visits approved by Insurance: n/a Date of Evaluation: 05/06/18 Payer Source: MEDICARE Surgery Performed?: No Treatment Diagnosis: frequent falls, gait difficulty, decreased strength History of Condition/Mechanism of Injury:: pt has had long history of falling and weakness. Prior Level of Function.....Patient was independent with: ADL's, Self Care, Ambulation/Mobility Functional Limitations: Reaching, Pushing, Pulling, Lifting, Carrying, Bending, Squatting, Ambulation, Community Access/Integration Current Subjective/complaints:: pt reports that she was just dc'd from home health PT. pt reports she falls often and doesn't know why. States she is able to "catch" herself with rwx at times. Treatment Side (optional): N/A *Precautions: fall precautions Medical History Medical History: Hypertension, CHF, Arthritis (OA, RA) Medical History Comments:: cardiomegaly, pulmonary edema, anemia, depression, osteoporosis Surgical History Comments:: cardioversion Smoking Status: Never smoker Hx Home Medications: alendronate, amiodarone, buspirone, calcium, dabigatran etexilate, furosemide, losartan, metoprolol, potassium chloride, sertraline Patient's Goals: get stronger and decrease falling Functional Outcome Measure Tinetti: 12 - G Codes & Severity Modifier G Codes & Modifier: n/a Source of G Code score: n/a Observation - Observation Inspection: pt with BLE pitting LE edema pt with weeping BLE with prasanna wraps to LLE and compression stocking to RLE Posture: Forward Head, Rounded Shoulders, Increased Thoracic Kyphosis, Decreased Lumbar Lordosis Handedness: Right Gait - Gait Pattern General Gait Pattern Observation: Crouched Gait, Decrease Stride Lngth (R), Decrease Stride Lngth (L) Gait Comments: pt with decreased step length, flexed posture, deviates from path. General Range of Motion: BUE shld flex limited R worse than L otherwise elbow wrist and hand WFL's. BLE WFL's Muscle Strength: BUE shld flex 3-/5, elbow flex/ext 4-/5, decreased activated sludge attendant B. BLE hip flex 4-/5, knee flex/ext 4/5, ankle DF/PF 4/5 Sensation - Sensation Right Upper Extremity: Intact/Normal Left Upper Extremity: Intact/Normal Right Lower Extremity: Impaired Left Lower Extremity: Impaired Comments: pt c/o n/t B feet Balance - Sitting Balance Static Sitting Balance: Good Dynamic Sitting Balance: Fair - Standing Balance Static Standing Balance: Fair Dynamic Standing Balance: Poor - Comments Balance Assessment Comments: tinetti balance score: 02/27 consistent with high risk of falls. gait speed: 0.5 meters/sec which is consistent with limited community ambulator Interventions - Exercise/Activities/Manual Therapy Exercises/Activities: pt performed AP, seated hip flex, LAQ, hip abd/add, arm chair push ups x 10 reps. Manual Therapy: n/a HOME EXERCISE PROGRAM: pt given written HEP including AP, seated hip flex, LAQ, hip abd/add, chair push up - Charges Timed Code Treatment Minutes: 52 Total Treatment Time: 61 Procedures billed for this date of service:: eval med, ex EVALUATION COMPLEXITY LEVEL EVALUATION COMPLEXITY LEVEL: HISTORY: Medium (age, falls, CHF, OA, HTN), EXAM OF BODY SYSTEMS: Medium (balance, gait, strength, ROM, posture), CLINICAL PRESENTATION: Medium, CLINICAL DECISION MAKING: Medium Assessment Assessment: pt presents with hx of frequent falls, decreased strength, balance, as well as gait difficulty. Feel pt would benefit from skilled PT for therex for strengthening, balance to decrease fall risk and improve functional mobility Patient Education: Home Exercise Program, Education of Plan of Care Rehab Potential: Good Short Term Goals Goal #1: pt independent with initial HEP Goal to be met by: 05/20/18 Goal #2: pt demonstrate improved dyn stand balance as noted by tinetti score Goal to be met by: 05/20/18 Goal #3: pt improve strength BLE 4 to 4+/5 Goal to be met by: 05/20/18 Goal #4: pt amb in dept with AAD with no LOB around obstacles CG to SBA Goal to be met by: 05/20/18 Senior Care Goals Goal #1: pt report no falls since eval Goal to be met by: 06/05/18 Goal #2: Improved dyn stand balance as noted by tinetti score Goal to be met by: 06/05/18 Goal #3: Improved gait speed 0.8m/s to be consistent with community ambulator Goal to be met by: 06/05/18 Goal #4: pt amb functional distances with AD with no LOB Goal to be met by: 06/05/18 Plan - Treatment to be Provided Procedures: Therapeutic Exercises, Therapeutic Activity, Gait Training, Patient Education Modalities: No Modalities - Treatment Plan Frequency: 2-3x a week Duration: 4 weeks Dates of Parking Lot Supervisor Goals: 06/05/18 Expiration date of current Insurance Approval:: n/a - Treatment Code (1) Frequent falls Code(s): R29.6 - REPEATED FALLS (2) Gait instability Code(s): R26.81 - UNSTEADINESS ON FEET (3) Impairment of balance Code(s): R26.89 - OTHER ABNORMALITIES OF GAIT AND MOBILITY (4) Muscle weakness Code(s): M62.81 - MUSCLE WEAKNESS (GENERALIZED)
--- NOTE | 2018-05-08 14:07 | RS.OPPTDN ---
Subjective Date of Note: 05/08/18 Visit #: 2 Number of visits approved by Insurance: na Date of Evaluation: 05/06/18 Payer Source: MEDICARE Treatment Diagnosis: frequent falls, gait difficulty, decreased strength Current Subjective/complaints:: Patient reports losing her balance backwards at times when initially standing up. *Precautions: fall precautions Interventions - Exercise/Activities/Manual Therapy Exercises/Activities: 50 mins. total, pt performed 05/15 AP, seated hip flex, LAQ with 2# resistance.Yellow t-band for hip abd/adduction,isometric hip abd / add with small therapy ball between knees.Bilateral leg press with 45 # ,05/15 .Discussed home safety while doing HEP. Total minutes of Exercise: 50 Manual Therapy: n/a Total minutes of Manual Therapy: 0 HOME EXERCISE PROGRAM: pt given written HEP including AP, seated hip flex, LAQ, hip abd/add, chair push up - Charges Timed Code Treatment Minutes: 50 Total Treatment Time: 50 Procedures billed for this date of service:: ex 3 Assessment: Patient has good return demo of exercises today,needs cues to control speed of eccentric motions and also the speed of her gait .She tends to be impulsive at times ,but corrects well with cues.She does weight shift onto her heels (x 2 ) with initial sit to stand today. Patient Education: Education of diagnosis, Body/Joint mechanics, Home Exercise Program, Home Safety, Activity Modification, Education of Plan of Care Patient demonstrates compliance with HEP?: Yes Short Term Goals Goal #1: pt independent with initial HEP Goal to be met by: 05/20/18 Progress towards Goal:: Progressing Goal #2: pt demonstrate improved dyn stand balance as noted by tinetti score Goal to be met by: 05/20/18 Goal #3: pt improve strength BLE 4 to 4+/5 Goal to be met by: 05/20/18 Goal #4: pt amb in dept with AAD with no LOB around obstacles CG to SBA Goal to be met by: 05/20/18 Clinical Transplant Coordinator Goals Goal #1: pt report no falls since eval Goal to be met by: 06/05/18 Goal #2: Improved dyn stand balance as noted by tinetti score Goal to be met by: 06/05/18 Goal #3: Improved gait speed 0.8m/s to be consistent with community ambulator Goal to be met by: 06/05/18 Goal #4: pt amb functional distances with AD with no LOB Goal to be met by: 06/05/18 Plan Dates of Fdc Goals: 06/05/18 Expiration date of current Insurance Approval:: na PLAN: Cont. skilled PT to maximize LE/trunk strength for safer transfers and gait on all surfaces.
--- NOTE | 2018-05-11 14:03 | RS.OPPTDN ---
Subjective Date of Note: 05/11/18 Visit #: 3 Number of visits approved by Insurance: na Date of Evaluation: 05/06/18 Payer Source: MEDICARE Treatment Diagnosis: frequent falls, gait difficulty, decreased strength Current Subjective/complaints:: Patient reports fatigue only after last session ,no increased muscle soreness. *Precautions: fall precautions Interventions - Exercise/Activities/Manual Therapy Exercises/Activities: 55 mins. total, 2-3 sets x15 reps, of resisted ankle pumps with yellow t-band,SAQ's,helslides ,hip abd/adduction with 2.5 # each LE.2 /10 bridging .Ended exercises in sitting doing 2/15 LAQ's with 2.5 # .Gait training on level and incline ramp with CGA of 1. Total minutes of Exercise: 55 Manual Therapy: n/a Total minutes of Manual Therapy: 0 HOME EXERCISE PROGRAM: pt given written HEP including AP, seated hip flex, LAQ, hip abd/add, chair push up - Charges Timed Code Treatment Minutes: 55 Total Treatment Time: 55 Procedures billed for this date of service:: ex 3,gait Assessment: Patient has posterior loss of balance onto heels with sit to stand x 2 today,able to self-correct with cues .She toleates the AROM exercises welll on the R LE,needs frequent rest periods with the L LE exercises due to weakness. Patient Education: Education of diagnosis, Body/Joint mechanics, Home Exercise Program, Home Safety, Activity Modification, Education of Plan of Care Patient demonstrates compliance with HEP?: Yes Short Term Goals Goal #1: pt independent with initial HEP Goal to be met by: 05/20/18 Progress towards Goal:: Progressing Goal #2: pt demonstrate improved dyn stand balance as noted by tinetti score Goal to be met by: 05/20/18 Goal #3: pt improve strength BLE 4 to 4+/5 Goal to be met by: 05/20/18 Progress towards Goal:: Progressing Goal #4: pt amb in dept with AAD with no LOB around obstacles CG to SBA Goal to be met by: 05/20/18 Powdered Sugar Supervisor Goals Goal #1: pt report no falls since eval Goal to be met by: 06/05/18 Progress towards goal: Progressing Goal #2: Improved dyn stand balance as noted by tinetti score Goal to be met by: 06/05/18 Goal #3: Improved gait speed 0.8m/s to be consistent with community ambulator Goal to be met by: 06/05/18 Goal #4: pt amb functional distances with AD with no LOB Goal to be met by: 06/05/18 Plan Dates of Powdered Sugar Supervisor Goals: 06/05/18 Expiration date of current Insurance Approval:: na PLAN: Cont. skilled PT to maximize the LE /trunk strength for safer mobility.
--- NOTE | 2018-05-14 15:05 | RS.OPPTDN ---
Subjective Date of Note: 05/14/18 Visit #: 4 Number of visits approved by Insurance: na Date of Evaluation: 05/06/18 Payer Source: MEDICARE Treatment Diagnosis: frequent falls, gait difficulty, decreased strength Current Subjective/complaints:: Patient reports feeling very unsteady today,but no falls. *Precautions: fall precautions Interventions - Exercise/Activities/Manual Therapy Exercises/Activities: 30 mins. total, 2-3 sets x15 reps, of resisted ankle pumps with yellow t-band,SAQ's,helslides ,hip abd/adduction with 2.5 # each LE.2Leg press ,05/15 @ 45 #. Total minutes of Exercise: 30 Manual Therapy: n/a Total minutes of Manual Therapy: 0 HOME EXERCISE PROGRAM: pt given written HEP including AP, seated hip flex, LAQ, hip abd/add, chair push up - Charges Timed Code Treatment Minutes: 30 Total Treatment Time: 30 Procedures billed for this date of service:: ex 2 Assessment: Abbreviated session today ,due to patient thought her appt . was later.She continues to be motivated to improve.She feels some of er medicine may possibly causing her to be unsteady and groggy.We discussed for her to discuss this with her Dr. Patient Education: Education of diagnosis, Body/Joint mechanics, Home Exercise Program, Home Safety, Activity Modification, Education of Plan of Care Patient demonstrates compliance with HEP?: Yes Short Term Goals Goal #1: pt independent with initial HEP Goal to be met by: 05/20/18 Progress towards Goal:: Progressing Goal #2: pt demonstrate improved dyn stand balance as noted by tinetti score Goal to be met by: 05/20/18 Goal #3: pt improve strength BLE 4 to 4+/5 Goal to be met by: 05/20/18 Progress towards Goal:: Progressing Goal #4: pt amb in dept with AAD with no LOB around obstacles CG to SBA Goal to be met by: 05/20/18 Supply Tech Goals Goal #1: pt report no falls since eval Goal to be met by: 06/05/18 Progress towards goal: Progressing Goal #2: Improved dyn stand balance as noted by tinetti score Goal to be met by: 06/05/18 Goal #3: Improved gait speed 0.8m/s to be consistent with community ambulator Goal to be met by: 06/05/18 Goal #4: pt amb functional distances with AD with no LOB Goal to be met by: 06/05/18 Plan Dates of Supply Tech Goals: 06/05/18 Expiration date of current Insurance Approval:: na PLAN: Cont. PT to strengthen LER's for better mobiity on all surfaces.
--- NOTE | 2018-05-22 16:18 | RS.OPPTDN ---
Subjective Date of Note: 05/22/18 Visit #: 5 Number of visits approved by Insurance: na Date of Evaluation: 05/06/18 Payer Source: MEDICARE Treatment Diagnosis: frequent falls, gait difficulty, decreased strength Current Subjective/complaints:: Patient reports falling today getting up from chair ,but no apparent injury.She reports having several pillows to elevate her legs and got tangled up in one of the pillows as she stood. *Precautions: fall precautions Interventions - Exercise/Activities/Manual Therapy Exercises/Activities: 45 mins. total, ,3/15 each of ankle pumps,QS;heelslides , alternate hip flexion,hip abd /adduction with 3# .Bridging x 10 ,LTR in hooklying.Assisted patient back to her vehicle using R/W down ramp with CGA/ min. of 1. Total minutes of Exercise: 45 Manual Therapy: n/a HOME EXERCISE PROGRAM: pt given written HEP including AP, seated hip flex, LAQ, hip abd/add, chair push up - Charges Timed Code Treatment Minutes: 45 Total Treatment Time: 45 Procedures billed for this date of service:: ex 3 Assessment: Patient needs increased assist with guiding the walker today, deviates from path frequently ,increased trunk sway today.She reports fatigue and muscle cramps periodically ,but no pain with activities.She is increased risk for falls today,compared to last week.We reviewed safety factors for ADL's at home,rest as needed.She is impulsive at times. Patient Education: Education of diagnosis, Body/Joint mechanics, Home Exercise Program, Home Safety, Activity Modification, Education of Plan of Care Patient demonstrates compliance with HEP?: Yes Short Term Goals Goal #1: pt independent with initial HEP Goal to be met by: 05/20/18 Progress towards Goal:: Progressing Goal #2: pt demonstrate improved dyn stand balance as noted by tinetti score Goal to be met by: 05/20/18 Goal #3: pt improve strength BLE 4 to 4+/5 Goal to be met by: 05/20/18 Progress towards Goal:: No Change Goal #4: pt amb in dept with AAD with no LOB around obstacles CG to SBA Goal to be met by: 05/20/18 Payroll Accounting Specialist Goals Goal #1: pt report no falls since eval Goal to be met by: 06/05/18 (fell today) Progress towards goal: Regressing Goal #2: Improved dyn stand balance as noted by tinetti score Goal to be met by: 06/05/18 Goal #3: Improved gait speed 0.8m/s to be consistent with community ambulator Goal to be met by: 06/05/18 Progress towards goal: No Change Goal #4: pt amb functional distances with AD with no LOB Goal to be met by: 06/05/18 Plan Dates of Payroll Accounting Specialist Goals: 06/05/18 Expiration date of current Insurance Approval:: na PLAN: Cont. skilled PT to strengthen LE's and trunk for safer mobility. Comments:: Discuss patient status with supervising PT.
--- NOTE | 2018-05-25 13:40 | RS.CXNS ---
Date of scheduled appointment: 05/25/18 Type: No Show Reason for Cancel/NS: Unknown
--- NOTE | 2018-05-27 14:09 | RS.OPPTDN ---
Subjective Date of Note: 05/27/18 Visit #: 6 Number of visits approved by Insurance: na Date of Evaluation: 05/06/18 Payer Source: MEDICARE Treatment Diagnosis: frequent falls, gait difficulty, decreased strength Current Subjective/complaints:: Patient reports falling again yesterday ,fell out of the bed.She reports she was not attempting to getting up,but feels she was dreaming and was tangled up in the bed covers.No visible injuries. *Precautions: fall precautions Interventions - Exercise/Activities/Manual Therapy Exercises/Activities: 55 mins. total, ,3/15 each of ankle pumps,QS;heelslides , alternate hip flexion,hip abd /adduction with 3# .Multiple reps of sit to stand quickly,cervical motions in all directions to assess if this affects balance.Gait in hallway with moderate hand hold and one rail.Assisted patient back to her vehicle using R/W down ramp with min. of 1. Total minutes of Exercise: 55 Manual Therapy: n/a Total minutes of Manual Therapy: 0 HOME EXERCISE PROGRAM: pt given written HEP including AP, seated hip flex, LAQ, hip abd/add, chair push up - Charges Timed Code Treatment Minutes: 55 Total Treatment Time: 55 Procedures billed for this date of service:: ex 2,gt,ther. act Assessment: Patient has increased gait deviation today ,increased trunk sway , with /without walker.She has no report of pain or dizziness with anty activity today.We discussed her safety at home due to more frequent falls.She has been discussing her living arrangements with her children. Patient Education: Education of diagnosis, Body/Joint mechanics, Home Exercise Program, Home Safety, Activity Modification, Education of Plan of Care Patient demonstrates compliance with HEP?: Yes Short Term Goals Goal #1: pt independent with initial HEP Goal to be met by: 05/20/18 Progress towards Goal:: Progressing Goal #2: pt demonstrate improved dyn stand balance as noted by tinetti score Goal to be met by: 05/20/18 Progress towards Goal:: No Change Goal #3: pt improve strength BLE 4 to 4+/5 Goal to be met by: 05/20/18 Progress towards Goal:: Progressing Goal #4: pt amb in dept with AAD with no LOB around obstacles CG to SBA Goal to be met by: 05/20/18 (n/a today) Special Event Assistant Goals Goal #1: pt report no falls since eval Goal to be met by: 06/05/18 (fell today) Progress towards goal: Regressing Goal #2: Improved dyn stand balance as noted by tinetti score Goal to be met by: 06/05/18 Progress towards goal: No Change Goal #3: Improved gait speed 0.8m/s to be consistent with community ambulator Goal to be met by: 06/05/18 Progress towards goal: No Change Goal #4: pt amb functional distances with AD with no LOB Goal to be met by: 06/05/18 Plan Dates of Special Event Assistant Goals: 06/05/18 Expiration date of current Insurance Approval:: na PLAN: Cont. PT ,initiate D/C plan if no change after the next 2-3 sessions.
== END 2018-05-31 23:59 ==
PROVIDERS: ATTEND Nurse Practitioner Family
DX: R29.6 Repeated falls (principal)

== ENCOUNTER 2018-05-31 19:32 | Outpatient (CLI) | END 2018-05-31 19:58 | disposition short-term general hospital (02) | LOC: AMBL 19:32 | PROVIDERS: ATTEND Internal Medicine Geriatric Medicine | DX: S01.81XA Laceration without foreign body of other part of head, initial encounter (principal); W22.8XXA Striking against or struck by other objects, initial encounter ==

== ENCOUNTER 2018-06-04 15:00 | Outpatient (RCR) ==
--- NOTE | 2018-06-01 15:21 | RS.CXNS ---
Date of scheduled appointment: 06/01/18 Type: Cancel Reason for Cancel/NS: Patient called and cancelled ,reports she fell yesterday at home ,and not feeling well.She plans to be here Fri. , 06-03-18.
--- NOTE | 2018-06-03 16:31 | RS.OPPTDN ---
Subjective Date of Note: 06/03/18 Visit #: 8 Number of visits approved by Insurance: na Date of Evaluation: 05/06/18 Payer Source: MEDICARE Treatment Diagnosis: frequent falls, gait difficulty, decreased strength Current Subjective/complaints:: Patient continues to be motivated ,but understands the D/C plan for this week ,as she approaches her rehab potential.She is considering asisted living due to having more recent falls.She has stitches above the R eyebrow from most fall at home 2 days ago. *Precautions: fall precautions Interventions - Exercise/Activities/Manual Therapy Exercises/Activities: 45 mins. total, ,3/15 each of ankle pumps,QS;heelslides , alternate hip flexion,hip abd /adduction with 2.5# .Gait in hallway with R/Wand CGA .Assisted patient back to her vehicle using R/W down ramp with min. of 1. Patient requires mod. assist to get up in van seat safely today. Total minutes of Exercise: 45 Manual Therapy: n/a HOME EXERCISE PROGRAM: pt given written HEP including AP, seated hip flex, LAQ, hip abd/add, chair push up - Charges Timed Code Treatment Minutes: 45 Total Treatment Time: 45 Procedures billed for this date of service:: ex 2,gt Assessment: Patient has improved strength overall,but continues to fall frequently at home.She is impulsive and does slow down with cues given.She understands the risk of falls is high recently,considering assisted living .She understands the POC and D/C for this week. Patient Education: Body/Joint mechanics, Home Safety, Education of Plan of Care Patient demonstrates compliance with HEP?: Yes Short Term Goals Goal #1: pt independent with initial HEP Goal to be met by: 05/20/18 Progress towards Goal:: Met Goal #2: pt demonstrate improved dyn stand balance as noted by tinetti score Goal to be met by: 05/20/18 Goal #3: pt improve strength BLE 4 to 4+/5 Goal to be met by: 05/20/18 Progress towards Goal:: Progressing Goal #4: pt amb in dept with AAD with no LOB around obstacles CG to SBA Goal to be met by: 05/20/18 Progress towards Goal:: No Change Burring Wheel Operator Goals Goal #1: pt report no falls since eval Goal to be met by: 06/05/18 (fell two days ago at home,stitches to R eyebrow area) Progress towards goal: Regressing Goal #2: Improved dyn stand balance as noted by tinetti score Goal to be met by: 06/05/18 Progress towards goal: No Change Goal #3: Improved gait speed 0.8m/s to be consistent with community ambulator Goal to be met by: 06/05/18 Goal #4: pt amb functional distances with AD with no LOB Goal to be met by: 06/05/18 Progress towards goal: No Change Plan Dates of Senior Living Goals: 06/05/18 Expiration date of current Insurance Approval:: na PLAN: Initiate D/C plan after next session.
--- NOTE | 2018-06-04 16:23 | RS.OPPTDN ---
Subjective Date of Note: 06/04/18 Visit #: 9 Number of visits approved by Insurance: na Date of Evaluation: 05/06/18 Payer Source: MEDICARE Treatment Diagnosis: frequent falls, gait difficulty, decreased strength Current Subjective/complaints:: Patient pleasant and cooperative ,reports no falls yesterday.She is using the rollator consistently. *Precautions: fall precautions Interventions - Exercise/Activities/Manual Therapy Exercises/Activities: 45 mins. total, ,Tinetti Assessment for balance and gait done today.Return HEP demo of seated exercises including AP, LAQ' s , hip abd/ add. Total minutes of Exercise: 45 Manual Therapy: n/a Total minutes of Manual Therapy: 0 HOME EXERCISE PROGRAM: pt given written HEP including AP, seated hip flex, LAQ, hip abd/add, chair push up - Charges Timed Code Treatment Minutes: 45 Total Treatment Time: 45 Procedures billed for this date of service:: ex, gt. , NMR Assessment: Patient has met rehab potential .She is considering assisted living due to increased frequency of falls at home.She is aware of D/C plan today. Patient Education: Home Exercise Program, Home Safety, Education of Plan of Care Patient demonstrates compliance with HEP?: Yes Short Term Goals Goal #1: pt independent with initial HEP Goal to be met by: 05/20/18 Progress towards Goal:: Met Goal #2: pt demonstrate improved dyn stand balance as noted by tinetti score Goal to be met by: 05/20/18 () Progress towards Goal:: Met Goal #3: pt improve strength BLE 4 to 4+/5 Goal to be met by: 05/20/18 Progress towards Goal:: Met Goal #4: pt amb in dept with AAD with no LOB around obstacles CG to SBA Goal to be met by: 05/20/18 Progress towards Goal:: No Change Weld Technician Goals Goal #1: pt report no falls since eval Goal to be met by: 06/05/18 (no falls yesterday) Progress towards goal: Progressing Goal #2: Improved dyn stand balance as noted by tinetti score Goal to be met by: 06/05/18 Goal #3: Improved gait speed 0.8m/s to be consistent with community ambulator Goal to be met by: 06/05/18 (n/a) Goal #4: pt amb functional distances with AD with no LOB Goal to be met by: 06/05/18 Progress towards goal: Progressing Plan Dates of Jail Goals: 06/05/18 Expiration date of current Insurance Approval:: na PLAN: D/C.
--- NOTE | 2018-06-08 09:52 | RS.OPPTDC ---
Date of Discharge: 06/08/18 Date of Evaluation: 05/06/18 Number of Visits: 9 Treatment Diagnosis: frequent falls, gait difficulty, decreased strength Current Level of Function: pt is independent with HEP. tinetti score improved from 02/27. BLE strength 4 to 4+/5. Dyn stand balance is fair, deviates from marybeth with R/W. pt has had multiple falls during treatment. Current Complaints/Gains: pt states she is pleased with progress regarding LE strength, but is aware of her risk of falls. pt states she tries to remember to "slow down" with ADL's. Functional Outcome Measure Tinetti: 19 - G Codes & Severity Modifier G Codes & Modifier: n/a Source of G Code score: n/a Observation - Observation Inspection: bruising noted to face and stiches noted above R eye due to recent fall. Posture: Forward Head, Rounded Shoulders, Increased Thoracic Kyphosis, Decreased Lumbar Lordosis Handedness: Right Gait - Gait Pattern General Gait Pattern Observation: Weaving Gait, Crouched Gait, Decrease Stride Lngth (R), Decrease Stride Lngth (L) Interventions - Exercise/Activities/Manual Therapy Exercises/Activities: n/a Manual Therapy: n/a HOME EXERCISE PROGRAM: pt given written HEP including AP, seated hip flex, LAQ, hip abd/add, chair push up - Charges Timed Code Treatment Minutes: n/a Total Treatment Time: n/a Procedures billed for this date of service:: n/a Assessment Assessment: pt has met STG 1, 2, 3 and progressing toward remaining goals. pt continues to be impulsive and at high risk of falls. pt is aware of risk. pt has made improvement with dyn stand balance, strength, and gait. Patient Education: Home Exercise Program, Education of Plan of Care Rehab Potential: Good Short Term Goals Goal #1: pt independent with initial HEP Goal to be met by: 05/20/18 Progress towards Goal:: Met Goal #2: pt demonstrate improved dyn stand balance as noted by tinetti score Goal to be met by: 05/20/18 () Progress towards Goal:: Met Goal #3: pt improve strength BLE 4 to 4+/5 Goal to be met by: 05/20/18 Progress towards Goal:: Met Goal #4: pt amb in dept with AAD with no LOB around obstacles CG to SBA Goal to be met by: 05/20/18 Progress towards Goal:: No Change Neon Sign Mechanic Goals Goal #1: pt report no falls since eval Goal to be met by: 06/05/18 (no falls yesterday) Progress towards goal: Progressing Goal #2: Improved dyn stand balance as noted by tinetti score Goal to be met by: 06/05/18 () Progress towards goal: Progressing Goal #3: Improved gait speed 0.8m/s to be consistent with community ambulator Goal to be met by: 06/05/18 (n/a) Progress towards goal: Progressing Goal #4: pt amb functional distances with AD with no LOB Goal to be met by: 06/05/18 Progress towards goal: Progressing Plan Reason for Discharge:: Maximum Potential Met Comments: Feel pt has reached max rehab potential at this time.
== END 2018-06-30 23:59 ==
PROVIDERS: ATTEND Nurse Practitioner Family
DX: R29.6 Repeated falls (principal); R26.81 Unsteadiness on feet; R26.89 Other abnormalities of gait and mobility; M62.81 Muscle weakness (generalized)